=== PATIENT | male | born 1940 | race Caucasian/White ===

== ENCOUNTER 2020-02-24 07:57 | Inpatient (IN) ==
[2020-02-24] MEDS ORDERED: ONDANSETRON INJ 2 MG/ML 2 ML VIAL IV STA (08:17)
[2020-02-24] MEDS ORDERED: fentaNYL citrate 100 MCG/2 ML VIAL IV PRN ×2 (08:17→14:43)
[2020-02-24] MEDS ORDERED: SODIUM CHLORIDE 0.9% 500 ML IV SCH (08:30)
[2020-02-24 08:31] LABS: Basophils # (auto) 0.02 K/uL (0-0.2); Basophils % (auto) 0.2 %; Eosinophils # (auto) 0.31 K/uL (0-0.5); Eosinophils % (auto) 2.5 %; Hematocrit (blood only) 49.5 % (42-52); Hemoglobin 17.4 g/dL (14.0-18.0); Immature Granulocytes # (auto) 0.04 K/uL (0.00-0.02); Immature Granulocytes % (auto) 0.3 %; Lymphocytes # (auto) 1.38 K/uL (1.2-3.4); Lymphocytes % (auto) 11.2 %; Mean Corpuscular Hemoglobin 31.4 pg (25-34); Mean Corpuscular Hgb Conc 35.2 g/dL (32-36); Mean Corpuscular Volume 89.2 fL (80-100); Mean Platelet Volume 9.8 fL (7.4-10.4); Monocytes # (auto) 0.91 K/uL (0.11-0.59); Monocytes % (auto) 7.4 %; Neutrophils # (auto) 9.69 K/uL (1.4-6.5); Neutrophils % (auto) 78.4 %; Platelet Count 249 K/uL (130-400); RDW Coefficient of Variation 14.2 % (11.5-14.5); RDW Standard Deviation 46.1 fL (36.4-46.3); Red Blood Count 5.55 M/uL (4.7-6.1); White Blood Count 12.35 K/uL (4.8-10.8)
--- NOTE | 2020-02-24 08:34 | Emergency Department Note ---
Impression & Plan Femur fracture, right, Fall, Compression fracture of lumbar vertebra, Compression fracture of thoracic vertebra ED Provider Note NAME: JEFF TAYLOR GEOVANY AGE: 79 SEX: M : 1940 ARRIVES VIA: Ambulance INFORMANT: Patient, the guards, the prehospital personnel ED PROVIDER(S): Nasir De Los Santos DO CHIEF COMPLAINT: Fall HPI: The patient is a 79-year-old male who presented to the emergency department from [facility]. The patient had an unwitnessed fall in the shower. He was found on the ground complaining of mostly right-sided pain. Apparently the patient is not spoken to any medical provider. It is unclear if the patient is unwilling to speak to providers or if he is deaf. The patient follows commands. According to the prehospital personnel the patient had right-sided pain mostly in the right thigh as well as the right elbow. There was no reported loss of consciousness however the patient was not witnessed with the fall. The patient does appear to communicate pain when he is palpated in these areas especially on the right upper and lower extremities. He does not have any reported abdominal pain chest pain neck pain nausea or vomiting. The patient was placed in a rigid cervical collar prior to arrival. The patient was not treated with pain medication prior to arrival. The patient has not had similar symptoms in the past to the best of my knowledge. ROS: See above HPI for pertinent positives & negatives. A total of 10 systems reviewed and were otherwise negative. Additional history was obtained from the guards as well as the prehospital personnel. PAST MEDICAL HISTORY: See Below PAST SURGICAL HISTORY: See Below FAMILY HISTORY: See Below SOCIAL HISTORY: See Below HOME MEDICATIONS: See Below ALLERGIES: See Below VITALS: See Below PHYSICAL EXAMINATION: GENERAL: The patient is awake and alert. He appears to be uncomfortable. He is currently immobilized with a rigid cervical collar. EYES: The conjunctivae are clear. The pupils are round and reactive. EARS, NOSE, MOUTH AND THROAT: The nose is without any evidence of any deformity. Mucous membranes are moist. Tongue is midline. NECK: There is no palpable posterior tenderness noted. The rigid cervical michael ar will remain in place for now. RESPIRATORY: Diminished breath sounds are noted throughout. There is no tachypnea or retractions noted. CARDIOVASCULAR: Regular rate and rhythm noted there no murmurs rubs or gallops normal S1 normal S2. GASTROINTESTINAL: The abdomen is nondistended. There is diffuse tenderness to palpation but no guarding or rigidity. Ostomy site is noted. BACK: No midline tenderness or or step-off noted range of motion in flexion extension as well as rotation no signs of muscle spasm noted MUSCULOSKELETAL/EXTREMITIES: The patient has pain with range of motion testing of the right thigh. He also has ecchymosis over the right vizcaino. There is a skin tear and tenderness over the right elbow. Range of motion appears intact in both upper extremities. SKIN: There is no obvious evidence of any rash. Trace pedal edema was noted. Pulses are symmetric in both feet. Skin was warm and dry. NEUROLOGIC: Patient is awake alert and follows commands. He is moving all extremities. MEDICAL DECISION MAKING: The patient is a 79-year-old male who presented to the emergency department after a fall in the shower. This was unwitnessed but the patient was found lying on his right side with significant pain to his right thigh. The patient was found to have a right femur fracture. The patient was evaluated with multiple laboratory and radiographic studies. He was also found have multiple compression fractures. I discussed the patient's laboratory and radiographic studies with him. Given his findings I discussed his case with the on-call [facility] hospitalist group as well as the on-call orthopedic surgeon. They have agreed to evaluate the patient for further inpatient management. Triage Nursing notes reviewed. Prior medical records reviewed Vital Signs: reviewed and remarkable for no significant abnormalities Differential diagnosis: Fracture, dislocation, contusion, intra-abdominal, pneumothorax, intrathoracic, intracranial, neurologic, compartment syndrome, rhabdomyolysis, as well as other pathologies. ER treatment provided: See below Diagnostics interpreted by me: ECG: EKG was obtained in the emergency department. My interpretation is normal sinus rhythm at 74 bpm. There is no ectopy. There is no acute ST segments. No previous tracing was available. Cardiac Monitoring: An order was placed for continuous cardiac monitoring. The monitor shows a rate of 83 with sinus rhythm. Laboratory studies: As stated above and show below. Imaging studies: XR shoulder RT min 2V routine CLINICAL HISTORY: fall trauma. Pain. COMPARISON: None. DISCUSSION: Moderate generalized degenerative change. No well-defined fracture or dislocation. Cortical margins are intact. Bony density is consistent with osteopenia. There is no evidence for soft tissue swelling. IMPRESSION: No acute process. Moderate degenerative change. Osteopenia. ACT 112: Negative or not required by law. The above report was generated using voice recognition software. It may contain grammatical, syntax or spelling errors. Electronically signed by: Rodger Meyers M.D. 02/24/2020 10:12 AM Dictated: 02/24/20 1012 Transcribed: 02/24/20 1012 R tibia fibula RT 2V CLINICAL HISTORY: fall trauma COMPARISON: None. DISCUSSION: The bones and joint spaces appear intact. There is no evidence of fracture, dislocation or bony disease. There is no evidence for soft tissue swelling. IMPRESSION: Negative study. ACT 112: Negative or not required by law. The above report was generated using voice recognition software. It may contain grammatical, syntax or spelling errors. Electronically signed by: Rodger Meyers M.D. 02/24/2020 10:11 AM Dictated: 02/24/20 1009 Transcribed: 02/24/[address] OF THE HEAD WITHOUT CONTRAST CLINICAL HISTORY: fall COMPARISON STUDY: Head CT July 22, 2018. TECHNIQUE: Helical axial images of the head were obtained without IV contrast. Automated exposure control was utilized for the study. A dose lowering technique was utilized adhering to the principles of ALARA. FINDINGS: No acute intracranial hemorrhage, midline shift or mass effect is present. The ventricular system is unremarkable. The basilar cisterns are patent. No extra-axial collections are present. There are no findings to suggest acute dural sinus thrombosis or acute territorial infarct. No significant calvarial abnormalities are present. Visualized portions of the sinuses and mastoid air cells are clear. White matter hypodensities are unchanged and suggest small vessel disease. Extensive intracranial vascular calcification is again noted. IMPRESSION: 1. No acute intracranial findings. No change in appearance of the brain. 2. No calvarial fracture. ACT 112: Negative or not required by law. Electronically signed by: Sharda Roger M.D. 02/24/2020 9:00 AM Dictated: 02/24/20 0856 Transcribed: 02/24/20 0856 XR femur RT 2V routine CLINICAL HISTORY: fall trauma. Pain. COMPARISON: None. DISCUSSION: Oblique fracture proximal right femoral shaft. Mild bony angulation. Severe degenerative change right hip. Mild bladder wall trabeculation. No evidence for dislocation. There is no evidence for soft tissue swelling. IMPRESSION: Oblique fracture proximal right femoral shaft. Mild fracture angulation. Severe degenerative change right hip. ACT 112: Negative or not required by law. The above report was generated using voice recognition software. It may contain grammatical, syntax or spelling errors. Electronically signed by: Rodger Meyers M.D. 02/24/2020 10:24 AM Dictated: 02/24/20 1023 Transcribed: 02/24/20 1023 XR elbow RT min 3V routine CLINICAL HISTORY: fall trauma COMPARISON: None. DISCUSSION: The bones and joint spaces appear intact. There is no evidence of fracture, dislocation or bony disease. There is no evidence for soft tissue swelling. IMPRESSION: Negative study. Minimal degenerative change ACT 112: Negative or not required by law. The above report was generated using voice recognition software. It may contain grammatical, syntax or spelling errors. Electronically signed by: Rodger Meyers M.D. 02/24/2020 10:12 AM Dictated: 02/24/20 1011 Transcribed: 02/24/[address] chest w con CT DOSE: HISTORY: Trauma fall TECHNIQUE: Multiaxial CT images of the chest were performed following the intravenous administration of contrast. A dose lowering technique was utilized adhering to the principles of ALARA. COMPARISON: None. FINDINGS: The lungs are clear. The mediastinal vascular structures are within normal limits. No mediastinal or hilar lymphadenopathy. No pleural effusion or p neumothorax. Limited views of the upper abdomen demonstrate a normal liver and spleen. Gallstones are present. Evaluation of the bony structures demonstrates a 50% compression deformity of what appears to be T12. Age is uncertain. IMPRESSION: No significant abnormality identified within the chest. Gallstones. 50% compression deformity of T12 of uncertain age. ACT 112: Negative or not required by law. The above report was generated using voice recognition software. It may contain grammatical, syntax or spelling errors. Electronically signed by: Rodger Meyers M.D. 02/24/2020 9:08 AM Dictated: 02/24/20 0905 Transcribed: 02/24/[address] cervical spine wo con CT DOSE: HISTORY: Trauma fall TECHNIQUE: Multiaxial CT images of the cervical spine were performed and reformatted in the sagittal and coronal plane without the use of contrast. A dose lowering technique was utilized adhering to the principles of ALARA. COMPARISON: 07/22/2018 FINDINGS: No fractures. No subluxation. Prevertebral soft tissues and the C1-C2 interval are intact. No pneumothorax. Moderate generalized degenerative change IMPRESSION: No fractures within the cervical spine. Moderate generalized degenerative change. ACT 112: Negative or not required by law. The above report was generated using voice recognition software. It may contain grammatical, syntax or spelling errors. Electronically signed by: Rodger Meyers M.D. 02/24/2020 9:05 AM Dictated: 02/24/20902 Transcribed: 02/24/20902 CT OF THE ABDOMEN AND PELVIS WITH CONTRAST CLINICAL HISTORY: fall COMPARISON STUDY: None. TECHNIQUE: Following IV administration of 93 mL of Optiray-320, axial images of the abdomen and pelvis were obtained from the lung bases to the proximal femurs. Images were reviewed in the axial, sagittal, and coronal planes. IV contrast was administered without complication. Automated exposure control was utilized for the study. A dose lowering technique was utilized adhering to the principles of ALARA. CT DOSE: 1790.65 mGy.cm FINDINGS: Please note that the chest will be reported separately. No hemoperitoneum or pneumoperitoneum is noted. There is no evidence for traumatic injury to the liver, spleen, adrenal glands, kidneys or pancreas. There is no biliary or pancreatic ductal dilatation dictation. There are gallstones within the gallbladder. There is no evidence for acute cholecystitis. The caliber and wall thickness of small bowel is noted. There is a right lower quadrant ileostomy. Patient is status post colectomy. There is no lymphadenopathy or ascites. Multiple large bladder calculi measure up to 3.5 cm. There is moderate bladder wall thickening. No hydronephrosis is present. Note is made of a severe T12 compression fracture. This is age indeterminate but probably subacute. There are mild compression fractures of T11 and L4 which are also age-indeterminate but probably old. 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 There is an acute proximal right femoral fracture which extends from the subtrochanteric portion of the right femur to the femoral neck. Fracture is mildly displaced within the subtrochanteric and intertrochanteric portions and nondisplaced at the level of the femoral neck. There is mild adjacent edema/hemorrhage. No acute pelvic fracture is noted. IMPRESSION: 1. Acute proximal right femoral fracture. Fracture mildly displaced within the subtrochanteric and intertrochanteric portions and nondisplaced at the level of the femoral neck. 2. No evidence of traumatic injury to the solid abdominal viscera. 3. Several lower thoracic and lumbar spine compression fractures, including a severe T12 compression fracture which is probably subacute. 4. Multiple large bladder calculi. Bladder wall thickening. 5. Cholelithiasis. ACT 112: Negative or not required by law. Electronically signed by: Sharad Roger M.D. 02/24/2020 9:16 AM Dictated: 02/24/20900 Transcribed: 02/24/20912 Consultation(s): 0950: I discussed this case with Bushra with the [facility] hospitalist group. They have agreed to evaluate the patient in the emergency department for further management and disposition. 1000: I discussed this case with Iveth who is the physician pet care assistant working with Dr. Medrano. They will evaluate the patient for surgical management. Past Med/Surg History Medical History (Updated 02/24/20 @ 10:42 by Nasir De Los Santos DO) Dermatomycosis Lumbar radiculopathy Major neurocognitive disorder Paroxysmal atrial fibrillation Presbycusis Thrombophlebitis Surgical History (Updated 02/24/20 @ 08:39 by Nasir De Los Santos DO) History of colostomy Social History Preferred Language: Malagasy Communication Ability: nonverbal Patient Observer Required: No Beliefs That Will Affect Care: None Current Living Situation: Other Current Living Situation Comment: [facility] Other Information That Helps Us Care for You: No Feels Safe at Home: Yes Smoking Status: Current every day smoker Do You Dip or Chew Tobacco: No ; Second Hand Exposure: No ; Tobacco Cessation Education Requested by Patient: No Hx Alcohol Use: No Hx Substance Use: No Allergies Allergies Allergy/AdvReac Type Severity Reaction Status Date / Time No Known Allergies Allergy Unverified 02/24/20 08:30 Home Meds Home Medications Medication Instructions Recorded Confirmed acetaminophen 650 mg PO QID PRN 02/24/20 02/24/20 celecoxib 100 mg PO DAILY 02/24/20 02/24/20 zinc oxide [Desitin] 1 applic TOPICAL BID 02/24/20 02/24/20 Results & Data (ED) Vital Signs Vital Signs - 24 hr 02/24/20 08:03 02/24/20 09:16 Temperature 36.5 C Temperature Source Oral Pulse Rate 83 Pulse Rate [Apical] 74 Pulse Rhythm Regular Pulse Rhythm [Apical] Regular Pulse Strength Normal Pulse Strength [Apical] Normal Respiratory Rate 18 18 Respiratory Effort / Characteristics Non-Labored Spontaneous Non-Labored Spontaneous Respiratory Depth Normal Normal Respiratory Pattern Regular Regular Blood Pressure 146/72 H Blood Pressure [Right Arm] 123/67 Blood Pressure Mean 96 Blood Pressure Mean [Right Arm] 85 Blood Pressure Position Lying Blood Pressure Position [Right Arm] Lying Pulse Oximetry 99 97 Oxygen Delivery Method Room Air Room Air Sepsis Recent Fever Within 48 Hours No Sepsis New/Unexplained Change in Mental Status No Sepsis Action Taken by Nursing No Action Required Laboratory Data Attestation: I reviewed the patient's lab results. Result diagrams: 02/24/20 08:13 02/24/20 08:13 Lab Results 02/24/20 02/24/20 02/24/20 Range/Units 08:13 08:13 08:13 WBC 12.35 H (4.8-10.8) K/uL RBC 5.55 (4.7-6.1) M/uL Hgb 17.4 (14.0-18.0) g/dL POC Hgb (14.0-18.0) g/dl Hct 49.5 (42-52) % POC Hct (42-52) % MCV 89.2 (80-100) fL MCH 31.4 (25-34) pg MCHC 35.2 (32-36) g/dL RDW Std Deviation 46.1 (36.4-46.3) fL RDW Coeff of Andrew 14.2 (11.5-14.5) % Plt Count 249 (130-400) K/uL MPV 9.8 (7.4-10.4) fL Immature Gran % (Auto) 0.3 % Neut % (Auto) 78.4 % Lymph % (Auto) 11.2 % Ziebach % (Auto) 7.4 % Eos % (Auto) 2.5 % Baso % (Auto) 0.2 % Immature Gran # (Auto) 0.04 H (0.00-0.02) K/uL Neut # (Auto) 9.69 H (1.4-6.5) K/uL Lymph # (Auto) 1.38 (1.2-3.4) K/uL Z[place]bach # (Auto) 0.91 H (0.11-0.59) K/uL Eos # (Auto) 0.31 (0-0.5) K/uL Baso # (Auto) 0.02 (0-0.2) K/uL PT 12.0 (9.0-12.0) Seconds INR 1.1 (0.9-1.1) APTT 27.4 (21.0-31.0) Seconds PTT Ratio 1.0 POC Sodium (135-144) mmol/L Sodium 140 (136-145) mmol/L POC Potassium (3.3-5.0) mmol/L Potassium 3.9 (3.5-5.1) mmol/L POC Chloride (101-112) mmol/L Chloride 108 H (98-107) mmol/L Carbon Dioxide 25 (21-32) mmol/L POC Total CO2 (24-31) mEq/l Anion Gap 7.0 (3-11) POC Anion Gap (16-25) mmol/L POC BUN (7-18) mg/dl BUN 27 H (7-18) mg/dl Creatinine 1.35 (0.6-1.4) mg/dl POC Creatinine (0.6-1.3) mg/dl Est Cr Clr Drug Dosing Not Reportable Est GFR ( Amer) 57.5 Est GFR (Non-Af Amer) 49.6 BUN/Creatinine Ratio 20.1 H (10-20) Glucose 179 H (70-99) mg/dl POC Glucose (other) (70-99) mg/dl Calcium 8.9 (8.5-10.1) mg/dl POC Ioniz Calcium Perez (1.12-1.32) mmol/l Total Bilirubin 0.8 (0.2-1) mg/dl AST 32 (15-37) U/L ALT 43 (12-78) U/L Alkaline Phosphatase 120 H (45-117) U/L Troponin I < 0.015 (0-0.045) ng/ml Total Protein 7.9 (6.4-8.2) gm/dl Albumin 3.4 (3.4-5.0) gm/dl Globulin 4.5 H (2.5-4.0) gm/dl Albumin/Globulin Ratio 0.8 L (0.9-2) Lipase 93 (73-393) U/L 04/23/20 Range/Units 08:34 WBC (4.8-10.8) K/uL RBC (4.7-6.1) M/uL Hgb (14.0-18.0) g/dL POC Hgb 17.3 (14.0-18.0) g/dl Hct (42-52) % POC Hct 51 (42-52) % MCV (80-100) fL MCH (25-34) pg MCHC (32-36) g/dL RDW Std Deviation (36.4-46.3) fL RDW Coeff of Andrew (11.5-14.5) % Plt Count (130-400) K/uL MPV (7.4-10.4) fL Immature Gran % (Auto) % Neut % (Auto) % Lymph % (Auto) % Ziebach % (Auto) % Eos % (Auto) % Baso % (Auto) % Immature Gran # (Auto) (0.00-0.02) K/uL Neut # (Auto) (1.4-6.5) K/uL Lymph # (Auto) (1.2-3.4) K/uL [place]bach # (Auto) (0.11-0.59) K/uL Eos # (Auto) (0-0.5) K/uL Baso # (Auto) (0-0.2) K/uL PT (9.0-12.0) Seconds INR (0.9-1.1) APTT (21.0-31.0) Seconds PTT Ratio POC Sodium 142 (135-144) mmol/L Sodium (136-145) mmol/L POC Potassium 3.9 (3.3-5.0) mmol/L Potassium (3.5-5.1) mmol/L POC Chloride 105 (101-112) mmol/L Chloride (98-107) mmol/L Carbon Dioxide (21-32) mmol/L POC Total CO2 25 (24-31) mEq/l Anion Gap (3-11) POC Anion Gap 17.0 (16-25) mmol/L POC BUN 27 H (7-18) mg/dl BUN (7-18) mg/dl Creatinine (0.6-1.4) mg/dl POC Creatinine 1.2 (0.6-1.3) mg/dl Est Cr Clr Drug Dosing Est GFR ( Amer) Est GFR (Non-Af Amer) BUN/Creatinine Ratio (10-20) Glucose (70-99) mg/dl POC Glucose (other) 175 H (70-99) mg/dl Calcium (8.5-10.1) mg/dl POC Ioniz Calcium Perez 1.20 (1.12-1.32) mmol/l Total Bilirubin (0.2-1) mg/dl AST (15-37) U/L ALT (12-78) U/L Alkaline Phosphatase (45-117) U/L Troponin I (0-0.045) ng/ml Total Protein (6.4-8.2) gm/dl Albumin (3.4-5.0) gm/dl Globulin (2.5-4.0) gm/dl Albumin/Globulin Ratio (0.9-2) Lipase (73-393) U/L Administered Medications Fentanyl Citrate (Fentanyl Citrate) 50 mcg IV Q15M PRN PRN Reason: Pain Stop: 03/09/20 08:16 Last Admin: 02/24/20 08:39 Dose: 50 mcg Documented by: [id number] Ioversol (Optiray 320 100ml) 93 ml IV ONCE PRN PRN Reason: Interaction Checking Stop: 02/28/20 08:47 Last Admin: 02/24/20 08:49 Dose: 93 ml Documented by: [id number] Discontinued Medications Sodium Chloride (Nss) 500 mls @ 999 mls/hr IV .Q31M [id number] Stop: 02/24/20 09:00 Last Infusion: 02/24/20 09:12 Dose: 0 mls/hr Documented by: [id number] Admin: 02/24/20 08:40 Dose: 999 mls/hr Documented by: [id number] Ondansetron HCl (Zofran) 4 mg IV NOW STA Stop: 02/24/20 08:18 Last Admin: 02/24/20 08:40 Dose: 4 mg Documented by: [id number] Blood Pressure Blood Pressure Findings: Normal blood pressure Discharge Plan Visit Data Chief Complaint: Fall ED Provider: Nasir De Los Santos Discharge Problem: Femur fracture, right, Fall, Compression fracture of lumbar vertebra, Compression fracture of thoracic vertebra Forms Stand Alone Forms: [employer] Prescriptions Prescriptions: No Action acetaminophen 325 mg Tablet 650 mg PO QID PRN (Reason: Pain) RF: 0 celecoxib 100 mg Capsule 100 mg PO DAILY RF: 0 Desitin 13 % Cream 1 applic TOPICAL BID RF: 0 Referrals Referrals: DARSHAN,Braden [Primary Care Provider] - Discharge Problem: Femur fracture, right Qualifiers: Encounter type: initial encounter Femur location: unspecified portion of femur Fracture type: closed Fracture morphology: unspecified fracture morphology Qualified Code(s): S72.91XA - Unspecified fracture of right femur, initial enco unter for closed fracture Fall Qualifiers: Encounter type: initial encounter Qualified Code(s): W19.XXXA - Unspecified fall, initial encounter Compression fracture of lumbar vertebra Qualifiers: Encounter type: initial encounter Lumbar vertebra fracture level: unspecified lumbar vertebra Qualified Code(s): S32.000A - Wedge compression fracture of unspecified lumbar vertebra, initial encounter for closed fracture Compression fracture of thoracic vertebra Qualifiers: Encounter type: initial encounter Thoracic vertebra fracture level: T12 Qualified Code(s): S22.080A - Wedge compression fracture of T11-T12 vertebra, initial encounter for closed fracture
[2020-02-24 08:41] LABS: INR 1.1 (0.9-1.1); Partial Thromboplastin Time 27.4 Seconds (21.0-31.0)
[2020-02-24 08:47] LABS: iSTAT Creatinine 1.2 mg/dl (0.6-1.3); iSTAT Hemoglobin 17.3 g/dl (14.0-18.0); iSTAT Ionized Calcium 1.2 mmol/l (1.12-1.32); iSTAT Potassium 3.9 mmol/L (3.3-5.0)
[2020-02-24] MEDS ORDERED: IOVERSOL 100ml IV PRN (08:48)
[2020-02-24 08:49] LABS: Alanine Aminotransferase 43 U/L (12-78); Albumin Level 3.4 gm/dl (3.4-5.0); Aspartate Aminotransferase 32 U/L (15-37); BUN Creatinine Ratio 20.1 (10-20); Blood Urea Nitrogen 27 mg/dl (7-18); Calcium 8.9 mg/dl (8.5-10.1); Carbon Dioxide 25 mmol/L (21-32); Chloride 108 mmol/L (98-107); Est GFR (African American) 57.5; Est GFR (Non-African American) 49.6; Glucose 179 mg/dl (70-99); Lipase 93 U/L (73-393); Potassium 3.9 mmol/L (3.5-5.1); Sodium 140 mmol/L (136-145)
[2020-02-24 08:54] LABS: Albumin Globulin Ratio 0.8 (0.9-2); Alkaline Phosphatase 120 U/L (45-117); Bilirubin,Total 0.8 mg/dl (0.2-1); Globulin 4.5 gm/dl (2.5-4.0); Total Protein 7.9 gm/dl (6.4-8.2); Troponin I < 0.015 ng/ml (0-0.045)
--- NOTE | 2020-02-24 09:02 | CT Scan Report ---
CT OF THE HEAD WITHOUT CONTRAST CLINICAL HISTORY: fall COMPARISON STUDY: Head CT July 22, 2018. TECHNIQUE: Helical axial images of the head were obtained without IV contrast. Automated exposure con trol was utilized for the study. A dose lowering technique was utilized adhering to the principles o f ALARA. FINDINGS: No acute intracranial hemorrhage, midline shift or mass effect is present. The ventricular system is unremarkable. The basilar cisterns are patent. No extra-axial collections are present. Ther e are no findings to suggest acute dural sinus thrombosis or acute territorial infarct. No significan t calvarial abnormalities are present. Visualized portions of the sinuses and mastoid air cells are c lear. White matter hypodensities are unchanged and suggest small vessel disease. Extensive intracrani al vascular calcification is again noted. IMPRESSION: 1. No acute intracranial findings. No change in appearance of the brain. 2. No calvarial fracture. ACT 112: Negative or not required by law. Electronically signed by: Sharad Roger M.D. 02/24/2020 9:00 AM
--- NOTE | 2020-02-24 09:06 | CT Scan Report ---
CT cervical spine wo con CT DOSE: HISTORY: Trauma fall TECHNIQUE: Multiaxial CT images of the cervical spine were performed and reformatted in the sagittal and coronal plane without the use of contrast. A dose lowering technique was utilized adhering to th e principles of ALARA. COMPARISON: 07/22/2018 FINDINGS: No fractures. No subluxation. Prevertebral soft tissues and the C1-C2 interval are intact. No pneumothorax. Moderate generalized degenerative change IMPRESSION: No fractures within the cervical spine. Moderate generalized degenerative change. ACT 112: Negative or not required by law. The above report was generated using voice recognition software. It may contain grammatical, syntax or spelling errors. Electronically signed by: Rodger Meyers M.D. 02/24/2020 9:05 AM
--- NOTE | 2020-02-24 09:10 | CT Scan Report ---
CT chest w con CT DOSE: HISTORY: Trauma fall TECHNIQUE: Multiaxial CT images of the chest were performed following the intravenous administration of contrast. A dose lowering technique was utilized adhering to the principles of ALARA. COMPARISON: None. FINDINGS: The lungs are clear. The mediastinal vascular structures are within normal limits. No media stinal or hilar lymphadenopathy. No pleural effusion or pneumothorax. Limited views of the upper abdo men demonstrate a normal liver and spleen. Gallstones are present. Evaluation of the bony structures demonstrates a 50% compression deformity of what appears to be T12. Age is uncertain. IMPRESSION: No significant abnormality identified within the chest. Gallstones. 50% compression deformity of T12 of uncertain age. ACT 112: Negative or not required by law. The above report was generated using voice recognition software. It may contain grammatical, syntax or spelling errors. Electronically signed by: Rodger Meyers M.D. 02/24/2020 9:08 AM
--- NOTE | 2020-02-24 09:17 | CT Scan Report ---
CT OF THE ABDOMEN AND PELVIS WITH CONTRAST CLINICAL HISTORY: fall COMPARISON STUDY: None. TECHNIQUE: Following IV administration of 93 mL of Optiray-320, axial images of the abdomen and pelvi s were obtained from the lung bases to the proximal femurs. Images were reviewed in the axial, sagitt al, and coronal planes. IV contrast was administered without complication. Automated exposure contro l was utilized for the study. A dose lowering technique was utilized adhering to the principles of A CARLA. CT DOSE: 1790.65 mGy.cm FINDINGS: Please note that the chest will be reported separately. No hemoperitoneum or pneumoperitone um is noted. There is no evidence for traumatic injury to the liver, spleen, adrenal glands, kidneys or pancreas. There is no biliary or pancreatic ductal dilatation dictation. There are gallstones with in the gallbladder. There is no evidence for acute cholecystitis. The caliber and wall thickness of s mall bowel is noted. There is a right lower quadrant ileostomy. Patient is status post colectomy. The re is no lymphadenopathy or ascites. Multiple large bladder calculi measure up to 3.5 cm. There is mo derate bladder wall thickening. No hydronephrosis is present. Note is made of a severe T12 compressio n fracture. This is age indeterminate but probably subacute. There are mild compression fractures of T11 and L4 which are also age-indeterminate but probably old. 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 There is an acute proximal right femoral fracture which extends from the subtrochante tori portion of the right femur to the femoral neck. Fracture is mildly displaced within the subtrocha nteric and intertrochanteric portions and nondisplaced at the level of the femoral neck. There is mil d adjacent edema/hemorrhage. No acute pelvic fracture is noted. IMPRESSION: 1. Acute proximal right femoral fracture. Fracture mildly displaced within the subtrochanteric and in tertrochanteric portions and nondisplaced at the level of the femoral neck. 2. No evidence of traumatic injury to the solid abdominal viscera. 3. Several lower thoracic and lumbar spine compression fractures, including a severe T12 compression fracture which is probably subacute. 4. Multiple large bladder calculi. Bladder wall thickening. 5. Cholelithiasis. ACT 112: Negative or not required by law. Electronically signed by: Sharad Roger M.D. 02/24/2020 9:16 AM
--- NOTE | 2020-02-24 10:12 | XRay Report ---
XR tibia fibula RT 2V CLINICAL HISTORY: fall trauma COMPARISON: None. DISCUSSION: The bones and joint spaces appear intact. There is no evidence of fracture, dislocation o r bony disease. There is no evidence for soft tissue swelling. IMPRESSION: Negative study. ACT 112: Negative or not required by law. The above report was generated using voice recognition software. It may contain grammatical, syntax or spelling errors. Electronically signed by: Rodger Meyers M.D. 02/24/2020 10:11 AM
--- NOTE | 2020-02-24 10:13 | XRay Report ---
XR elbow RT min 3V routine CLINICAL HISTORY: fall trauma COMPARISON: None. DISCUSSION: The bones and joint spaces appear intact. There is no evidence of fracture, dislocation o r bony disease. There is no evidence for soft tissue swelling. IMPRESSION: Negative study. Minimal degenerative change ACT 112: Negative or not required by law. The above report was generated using voice recognition software. It may contain grammatical, syntax or spelling errors. Electronically signed by: Rodger Meyers M.D. 02/24/2020 10:12 AM
--- NOTE | 2020-02-24 10:14 | XRay Report ---
XR shoulder RT min 2V routine CLINICAL HISTORY: fall trauma. Pain. COMPARISON: None. DISCUSSION: Moderate generalized degenerative change. No well-defined fracture or dislocation. Cortic al margins are intact. Bony density is consistent with osteopenia. There is no evidence for soft tiss ue swelling. IMPRESSION: No acute process. Moderate degenerative change. Osteopenia. ACT 112: Negative or not required by law. The above report was generated using voice recognition software. It may contain grammatical, syntax or spelling errors. Electronically signed by: Rodger Meyers M.D. 02/24/2020 10:12 AM
[2020-02-24] MEDS ORDERED: PNEUMOCOCCAL POLYSACCHARIDES 25 MCG/0.5 ML VIAL/SYR IM ONE (10:22)
[2020-02-24] MEDS ORDERED: PNEUMOCOCCAL ADMINISTRATION CHARGE ONE (10:22)
--- NOTE | 2020-02-24 10:26 | XRay Report ---
XR femur RT 2V routine CLINICAL HISTORY: fall trauma. Pain. COMPARISON: None. DISCUSSION: Oblique fracture proximal right femoral shaft. Mild bony angulation. Severe degenerative change right hip. Mild bladder wall trabeculation. No evidence for dislocation. There is no evidence for soft tissue swelling. IMPRESSION: Oblique fracture proximal right femoral shaft. Mild fracture angulation. Severe degenerat jihan change right hip. ACT 112: Negative or not required by law. The above report was generated using voice recognition software. It may contain grammatical, syntax or spelling errors. Electronically signed by: Rodger Meyers M.D. 02/24/2020 10:24 AM
--- NOTE | 2020-02-24 10:39 | History & Physical Report ---
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 Xray reveals Oblique fracture proximal right femoral shaft. Mild fracture angulation. Seen and evaluated by Orthopedics in ED - likely plan is for OR today. Due to pt underlying cognitive status he is not able to sign consent, ortho to attempt to contact son Jorge Enrique [phone] admit to med/surg consult ortho - for surgery PT/OT post operatively encourage incentive spirometry IVF NS 75cc/hr x 2 L NPO pain control EKG, labs, Chest CT revealed and pt is medically stable for surgery, RCRI score 1 okay to proceed (3) Compression fracture of thoracic vertebra: defer to orthopedics will consult PT/OT when able pain control (4) Compression fracture of lumbar vertebra: defer to orthopedics will consult PT/OT when able pain control (5) Paroxysmal atrial fibrillation: per notes hx of PAF in 2015 not on any rate control oral anticoagulation Monitor (6) Major neurocognitive disorder: Patient with documented major neurocognitive disorder likely due to vascular disease without behavioral disturbance No formal diagnosis of dementia; however according to DARSHAN Feliciano at baseline he is only alert and oriented to self Occasionally does become nonverbal whenever he cannot hear or is in pain Monitor for delirium (7) Hyperglycemia: Blood glucose upon arrival was 179 No formal diagnosis of diabetes A1C was 5.5 likely in setting of stress response due to fx monitor accuchecks x 24hrs (8) DVT prophylaxis: SCD/TEDS for now pt likely to undergo surgery today would recommend chemical prophylaxis as soon as possible when okay per orthopedic Full code Disposition: admit to med/surg Follow up: [facility] Pt was seen and examined in collaboration with Dr. Mark, please see addendum Admission and Anticipated Discharge Date Admission Date: 02/24/2020 History of Present Illness Chief Complaint: Fall prior to arrival. 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 Fall was unwitnessed. It was felt he was not down long. Unable to obtain hx or ROS from pt given underlying cognitive disease. Per staff at [facility] at baseline he is mostly wheelchair bound but he is able to get up and ambulate a few steps for transfer. His mental status baseline is alert and orientation to self only. According to staff he does occasionally get nonverbal secondary to impacted cerumen and difficulty hearing as well as pain. When pain is improved he then becomes verbal again. According to staff he also frequently pulls off his ileostomy bag. Per staff he has not had anything to eat or drink yet this morning. In ED he remained hemodynamically stable. Lab work notable for WBC 12.35, H&H 17.4 and 49.5, platelet 249, sodium 140, K3.9, chloride 108, CO2 25, BUN 27, creatinine 1.35, glucose 179. Multiple imaging studies were performed which revealed acute proximal right femur fracture, mild displacement and angulation, several lower thoracic and lumbar spine compression fractures including a severe T12 compression fracture likely subacute. Cervical spine and chest CT was negative for acute abnormality. CT of head was negative for acute abnormality but did reveal severe cerebral calcifications unchanged from prior CT in 2018. In ED he did receive IV fentanyl for pain control and IVF. Allergies Allergy/AdvReac Type Severity Reaction Status Date / Time No Known Allergies Allergy Unverified 02/24/20 08:30 Home Medications Home Medications Medication Instructions Recorded Confirmed Type acetaminophen 650 mg PO QID PRN 02/24/20 02/24/20 History celecoxib 100 mg PO DAILY 02/24/20 02/24/20 History zinc oxide [Desitin] 1 applic TOPICAL BID 02/24/20 02/24/20 History Past Med/Surg History Medical History Dermatomycosis Lumbar radiculopathy Major neurocognitive disorder Paroxysmal atrial fibrillation Presbycusis Thrombophlebitis Surgical History History of colostomy Family History Other Unknown family medical history Social History Preferred Language: Bengali Communication Ability: nonverbal Applications Instructor Required: No Beliefs That Will Affect Care: None Current Living Situation: Other Current Living Situation Comment: DARSHAN Feliciano Other Information That Helps Us Care for You: No Feels Safe at Home: Yes Smoking Status: Smoker, status unknown Review of Systems Review of Systems: Unobtainable due to cognitive status Physical Exam Physical Exam: Constitutional: Elderly, male, lying in bed, awake and alert but not verbally responsive,vitals as above, NAD Head: Normocephalic, Atraumatic Eyes: Pupils equal and reactive to light, does not follow command, conjunctivae normal, anicteric sclerae ENMT: external ear and nose normal, oropharynx with dry mucous membranes Neck: trachea midline, no thyromegaly normal visual inspection Respiratory: normal respiratory effort, lungs clear to auscultation, no wheeze, rales, rhonchi. Normal insp/exp effort, no accessory muscle use Cardiovascular: RRR, no murmur, no edema Vessels: no JVD or carotid bruit Chest: normal inspection of chest Abdomen: Positive ventral scar noted, positive ileostomy right lower quadrant with no stool output, abdomen flat, nontender to palpation, normal active bowel sounds, no hepatosplenomegaly Musculoskeletal: no cyanosis or clubbing, shortened right lower extremity with foot inversion, ecchymosis and edema to right lateral thigh with deformity, patient does not follow commands to assess strength of other extremities Skin: no rashes, warm and dry moderate turgor Neurologic: PERRL, no face palsy, CN's II-XI intact grossly bilaterally Psychiatric: Alert and arousable, but does not follow commands or answer questions, nonverbal, flat affect Lymphatic: no cervical or axillary lymphadenopathy : deferred Results & Data Results & Data ([facility]) Vital Signs (Past 12 Hours) Vital Signs Temp Pulse Pulse Resp BP BP Pulse Ox 02/24/20 09:16 74 18 123/67 97 02/24/20 08:03 36.5 C 83 18 146/72 H 99 Laboratory Results Short CBC 02/24/20 02/24/20 Range/Units 08:13 08:13 WBC 12.35 H (4.8-10.8) K/uL Hgb 17.4 (14.0-18.0) g/dL Hct 49.5 (42-52) % Plt Count 249 (130-400) K/uL BUN 27 H (7-18) mg/dl Creatinine 1.35 (0.6-1.4) mg/dl [facility] 02/24/20 08:13 Sodium 140 Potassium 3.9 Chloride 108 H Carbon Dioxide 25 BUN 27 H Creatinine 1.35 Glucose 179 H Calcium 8.9 Cardiac Enzymes 02/24/20 Range/Units 08:13 Troponin I < 0.015 (0-0.045) ng/ml Liver Function 02/24/20 Range/Units 08:13 Total Bilirubin 0.8 (0.2-1) mg/dl AST 32 (15-37) U/L ALT 43 (12-78) U/L Alkaline Phosphatase 120 H (45-117) U/L Albumin 3.4 (3.4-5.0) gm/dl Diagnostic Findings abd/pelvis CT: IMPRESSION: 1. Acute proximal right femoral fracture. Fracture mildly displaced within the subtrochanteric and intertrochanteric portions and nondisplaced at the level of the femoral neck. 2. No evidence of traumatic injury to the solid abdominal viscera. 3. Several lower thoracic and lumbar spine compression fractures, including a severe T12 compression fracture which is probably subacute. 4. Multiple large bladder calculi. Bladder wall thickening. 5. Cholelithiasis. Cspine CT: IMPRESSION: No fractures within the cervical spine. Moderate generalized degenerative change. Chest CT: IMPRESSION: No significant abnormality identified within the chest. Gallstones. 50% compression deformity of T12 of uncertain age. Elbow Xray: IMPRESSION: Negative study. Minimal degenerative change Femur Xray: IMPRESSION: Oblique fracture proximal right femoral shaft. Mild fracture angulation. Severe degenerative change right hip. Head CT: IMPRESSION: 1. No acute intracranial findings. No change in appearance of the brain. 2. No calvarial fracture. Tib/Fib xray: IMPRESSION: Negative study. Shoulder Xray: Medications Administered Short CBC 02/24/20 Range/Units 08:13 WBC 12.35 H (4.8-10.8) K/uL Hgb 17.4 (14.0-18.0) g/dL Hct 49.5 (42-52) % Plt Count 249 (130-400) K/uL [facility] 02/24/20 08:13 Sodium 140 Potassium 3.9 Chloride 108 H Carbon Dioxide 25 BUN 27 H Creatinine 1.35 Glucose 179 H Calcium 8.9 Cardiac Enzymes 02/24/20 Range/Units 08:13 Troponin I < 0.015 (0-0.045) ng/ml Liver Function 02/24/20 Range/Units 08:13 Total Bilirubin 0.8 (0.2-1) mg/dl AST 32 (15-37) U/L ALT 43 (12-78) U/L Alkaline Phosphatase 120 H (45-117) U/L Albumin 3.4 (3.4-5.0) gm/dl ECG Rate (beats per minute): 74 Rhythm: normal sinus Additional Comments: QTC 466ms Code Status & VTE Plan Code Status Full Code VTE Prophylaxis Plan VTE Prophylaxis will be ordered: Yes Supervising Physician Co-Signing Physician Notes Patient is a 79-year-old male with past medical history of paroxysmal A. fib, thrombophlebitis, major neurocognitive disorder, Ileostomy and other problems presents from [facility] with history of unwitnessed fall. Patient is nonverbal and does not follow commands. Most of the history is obtained from [facility] staff, ER physician and old records. Imaging studies suggestive of acute proximal right femur fracture with mild displacement. Also showed several lower thoracic and lumbar spine compression fractures. Mild leukocytosis with 12 K and elevated blood glucose levels was noted on labs. On exam patient is normocephalic atraumatic, moderately built and nourished, no apparent distress, nonverbal, does not follow commands, lungs clear to auscultation, S1-S2, no murmur, abdomen soft, nontender,+Ileostomy,, no pedal edema, complete neuro exam could not be performed, Right LE decreased ROM, mild swelling, tender. Patient is admitted for management of right femur fracture, compression fracture of thoracic/lumbar vertebrae. Patient is hemodynamically stable. No known obvious contraindications for surgery noted. Orthopedics consulted for possible surgery today. Hemoconcentration noted. We will plan to give IV fluids, will control pain. Keep him n.p.o. for now given possible surgery. Will check HbA1c given hyperglycemia. I personally reviewed the record. Patient is interviewed and examined at bedside. Patient's care is coordinated with Bushra Pataky PA- C. Please refer to the documentation above for details of patient's presentation and for discussion of other issues. (1) Compression fracture of lumbar vertebra Encounter type: initial encounter Lumbar vertebra fracture level: unspecified lumbar vertebra Qualified Code(s): S32.000A - Wedge compression fracture of unspecified lumbar vertebra, initial encounter for closed fracture (2) Compression fracture of thoracic vertebra Encounter type: initial encounter Thoracic vertebra fracture level: T12 Qualified Code(s): S22.080A - Wedge compression fracture of T11-T12 vertebra, initial encounter for closed fracture (3) Femur fracture, right Encounter type: initial encounter Femur location: unspecified portion of femur Fracture morphology: unspecified fracture morphology Fracture type: closed Qualified Code(s): S72.91XA - Unspecified fracture of right femur, initial encounter for closed fracture (4) Fall Encounter type: initial encounter Qualified Code(s): W19.XXXA - Unspecified fall, initial encounter
[2020-02-24 11:09] LABS: Estimated Average Glucose 111 mg/dl; Hemoglobin A1C 5.5 % (4.5-5.6)
[2020-02-24] MEDS ORDERED: SODIUM CHLORIDE 0.9% 1000ML 1,000 ML IV SCH (11:33)
--- NOTE | 2020-02-24 11:49 | Orthopedic Consultation ---
Date of Consultation February 24, 2020 Assessment & Plan (1) Femur fracture, right: I spoke to Dr Medrano regarding the patients films, physical exam, and cognitive baseline. Dr Medrano feels the patient would benefit from surgical intervention. Medicine saw this patient and cleared for surgery. Patient has been NPO. I contacted [facility] Den[facility] and am awaiting information regarding who I may speak to for consent to proceed with surgery. The surgery includes ORIF Right proximal femur fracture to be performed by Dr Medrano. Potential risks, complications, and outcomes of surgery include but are not limited to bleeding, wound issues, nerve and vascular compromise, infection, nonunion/malunion, hardware failure, continued pain, limited mobility, anesthesia issues, DVT, PE, stroke, heart attack, . Dr Medrano plans to see patient. OR was contacted. I, Dr. Medrano, saw and examined the patient and discussed the management with my PA. I reviewed my PAs note and agree with the documented findings and the plan of care I developed. As we have made several attempts to contact the son who is the power of assistant district attorney and the nurse sporting goods sales manager of the [facility], as this patient is non-verbal, and due to the nature of the femoral fractures, we will proceed with surgery with implied consent. Present on Admission?: Yes History of Present Illness Reason for Consultation: Right proximal femur fracture Requesting Physician: Dr Medrano History of Present Illness The patient is a 79-year-old male who presented to the emergency department from [place]. The patient had an unwitnessed fall in the shower. He was found on the ground. According to the [employer] employees, the patient had right-sided pain mostly in the right thigh among other areas to a lesser degree. There was no reported loss of consciousness however the patient was not witnessed with the fall. Per [employer] employees patient is Alert x himself with baseline dementia, w/c bound mostly but occasionally transfers on his own, fairly nonverbal especially when he is in pain. The patient presented to the ED with rigid cervical collar. He upon arrival was given pain medication. Per ER staff he has been nonverbal, initially responding to pain with right hip motion. Dr Medrano was consulted for right proximal femur fracture. Per medicine patient also has a T12 compression fracture. Allergies Allergy/AdvReac Type Severity Reaction Status Date / Time No Known Allergies Allergy Unverified 02/24/20 08:30 Home Medications Home Medications Medication Instructions Recorded Confirmed Type acetaminophen 650 mg PO QID PRN 02/24/20 02/24/20 History celecoxib 100 mg PO DAILY 02/24/20 02/24/20 History zinc oxide [Desitin] 1 applic TOPICAL BID 02/24/20 02/24/20 History Patient History Medical History Dermatomycosis Lumbar radiculopathy Major neurocognitive disorder Paroxysmal atrial fibrillation Presbycusis Thrombophlebitis Surgical History History of colostomy Family History Other Unknown family medical history Social History Preferred Language: Bahamian Communication Ability: nonverbal Derrick Barge Operator Required: No Beliefs That Will Affect Care: None Current Living Situation: Other Current Living Situation Comment: [facility] Other Information That Helps Us Care for You: No Feels Safe at Home: Yes Smoking Status: Smoker, status unknown Review of Systems Review of Systems: Unable to obtain; patient nonverbal and not responding to commands/questions Physical Exam Physical Exam: Difficult to obtain with patient being nonverbal and not responding to pain stimulus/questions/or commands. Patient in bed ileostomy bag noted RLQ. B LE skin intact. Calves soft. Palpable DP and PT pulses. No pitting edema. Brisk capillary refill. Could not elicit pain response with right hip log rolling, passive hip motion, or passive knee motion. Results & Data ([facility]) Vital Signs (Past 12 Hours) Vital Signs Temp Pulse Pulse Resp BP BP Pulse Ox 02/24/20 10:30 74 20 116/71 98 02/24/20 09:16 74 18 123/67 97 02/24/20 08:03 36.5 C 83 18 146/72 H 99 Diagnostic Findings XR femur RT 2V routine CLINICAL HISTORY: fall trauma. Pain. COMPARISON: None. DISCUSSION: Oblique fracture proximal right femoral shaft. Mild bony angulation. Severe degenerative change right hip. Mild bladder wall trabeculation. No evidence for dislocation. There is no evidence for soft tissue swelling. IMPRESSION: Oblique fracture proximal right femoral shaft. Mild fracture angulation. Severe degenerative change right hip. CT Scan Report Patient: JEFF ARMENTA [id number] Admit Date: 02/24/20 Service Date: 02/24/20 Interpreting Phy: Sharad Roger MD Ordering Phy: Nasir De Los Santos, DO CT OF THE ABDOMEN AND PELVIS WITH CONTRAST CLINICAL HISTORY: fall COMPARISON STUDY: None. TECHNIQUE: Following IV administration of 93 mL of Optiray-320, axial images of the abdomen and pelvis were obtained from the lung bases to the proximal femurs. Images were reviewed in the axial, sagittal, and coronal planes. IV contrast was administered without complication. Automated exposure control was utilized for the study. A dose lowering technique was utilized adhering to the principles of ALARA. CT DOSE: 1790.65 mGy.cm FINDINGS: Please note that the chest will be reported separately. No hemoperitoneum or pneumoperitoneum is noted. There is no evidence for traumatic injury to the liver, spleen, adrenal glands, kidneys or pancreas. There is no biliary or pancreatic ductal dilatation dictation. There are gallstones within the gallbladder. There is no evidence for acute cholecystitis. The caliber and wall thickness of small bowel is noted. There is a right lower quadrant ileostomy. Patient is status post colectomy. There is no lymphadenopathy or ascites. Multiple large bladder calculi measure up to 3.5 cm. There is moderate bladder wall thickening. No hydronephrosis is present. Note is made of a severe T12 compression fracture. This is age indeterminate but probably subacute. There are mild compression fractures of T11 and L4 which are also age-indeterminate but probably old. 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 There is an acute proximal right femoral fracture which extends from the subtrochanteric portion of the right femur to the femoral neck. Fracture is mildly displaced within the subtrochanteric and intertrochanteric portions and nondisplaced at the level of the femoral neck. There is mild adjacent edema/hemorrhage. No acute pelvic fracture is noted. IMPRESSION: 1. Acute proximal right femoral fracture. Fracture mildly displaced within the subtrochanteric and intertrochanteric portions and nondisplaced at the level of the femoral neck. 2. No evidence of traumatic injury to the solid abdominal viscera. 3. Several lower thoracic and lumbar spine compression fractures, including a severe T12 compression fracture which is probably subacute. 4. Multiple large bladder calculi. Bladder wall thickening. 5. Cholelithiasis. CT cervical spine wo con CT DOSE: HISTORY: Trauma fall TECHNIQUE: Multiaxial CT images of the cervical spine were performed and reformatted in the sagittal and coronal plane without the use of contrast. A dose lowering technique was utilized adhering to the principles of ALARA. COMPARISON: 07/22/2018 FINDINGS: No fractures. No subluxation. Prevertebral soft tissues and the C1-C2 interval are intact. No pneumothorax. Moderate generalized degenerative change IMPRESSION: No fractures within the cervical spine. Moderate generalized degenerative change. (1) Femur fracture, right Encounter type: initial encounter Femur location: unspecified portion of femur Fracture morphology: unspecified fracture morphology Fracture type: closed Qualified Code(s): S72.91XA - Unspecified fracture of right femur, initial encounter for closed fracture
[2020-02-24] MEDS ORDERED: GLUCAGON FOR INJ 1 MG VIAL SQ PRN (11:56)
[2020-02-24] MEDS ORDERED: DEXTROSE 50% 50 ML SYRINGE IV PRN (11:56)
[2020-02-24] MEDS ORDERED: OXYCODONE HCL IR 5 MG TAB (IMMEDIATE RELEASE) PO PRN (11:56)
[2020-02-24] MEDS ORDERED: MoRPHine SULFATE 2 MG/ML CARP IV PRN (11:56)
[2020-02-24] MEDS ORDERED: GLUCOSE 10 TABS/TUBE PO PRN (11:56)
[2020-02-24] MEDS ORDERED: ONDANSETRON INJ 2 MG/ML 2 ML VIAL IV PRN ×2 (11:56→14:43)
[2020-02-24] MEDS ORDERED: CARBOHYDRATES FOR HYPOGLYCEMIA PO PRN (11:56)
[2020-02-24] MEDS ORDERED: bisacodyL 10 MG SUPP PR PRN (11:56)
[2020-02-24] MEDS ORDERED: GLUCOSE 40% GEL 15 GM TUBE PO PRN (11:56)
[2020-02-24] MEDS ORDERED: NALOXONE HCL 0.4 MG/1 ML VIAL/CARP IV PRN ×2 (11:56→18:26)
[2020-02-24] MEDS ORDERED: ACETAMINOPHEN 325 MG TAB PO PRN (11:56)
[2020-02-24] MEDS ORDERED: MAGNESIUM HYDROXIDE SUSP 30 ML UDC PO PRN (11:56)
[2020-02-24] MEDS ORDERED: CEFAZOLIN 1000MG 1,000 MG/7.5 ML SYR IV ONE (12:15)
[2020-02-24] MEDS ORDERED: BUPIVACAINE 0.5 % 5 MG/1 ML MPF 30ML VIAL ONE (12:30)
[2020-02-24] MEDS ORDERED: LIDOCAINE/EPINEPHRINE 1% 20 ML VIAL ONE (12:30)
--- NOTE | 2020-02-24 14:30 | Electrocardiogram Report ---
Test Reason : Blood Pressure : / mmHG Vent. Rate : 074 BPM Atrial Rate : 074 BPM P-R Int : 136 ms QRS Dur : 096 ms QT Int : 420 ms P-R-T Axes : -01 020 047 degrees QTc Int : 466 ms Poor data quality, interpretation may be adversely affected Normal sinus rhythm Normal ECG No previous ECGs available Confirmed by Obdulio Ramos ([id number]) on 02/24/2020 2:29:48 PM Referred By: [facility] Confirmed By:Marc Ramos
[2020-02-24] MEDS ORDERED: ePHEDrine sulfate 50 MG/ML AMP IV PRN (14:43)
[2020-02-24] MEDS ORDERED: ATROPINE SULFATE 0.1 MG/ML 10ML SYR IV PRN (14:43)
--- NOTE | 2020-02-24 14:43 | Anesthesiology Consultation ---
Date of Service February 24, 2020 Assessment & Plan (1) Encounter for pre-operative examination: Chart Review Chart Review: Acceptable Risk for Surgery and Patient NOT seen in Pre Admission Testing Consults Requested none ASA ASA3 Proposed Anesthesia Anesthesia Type: MAC Spinal Risk / Benefits Reviewed With: Informed Consent Obtained (Implied consent. Urgent procedure. POA unable to be contacted. Patient non verbal and does not follow commands. Case discussed with Dr Medrano and laborer beam house.) History Surgery Operation Date: 02/24/20 07:30 Proposed Procedures p Open Reduction Internal Fixation Right Trochanteric Femur Fracture - Jeraashish persaud MD Height/Weight Height: 5 ft 4 in Weight: 67.3 kg Allergies Allergy/AdvReac Type Severity Reaction Status Date / Time No Known Allergies Allergy Unverified 02/24/20 08:30 Medications Home Medications Medication Instructions Recorded Confirmed Last Taken acetaminophen 650 mg PO QID PRN 02/24/20 02/24/20 02/23/20 celecoxib 100 mg PO DAILY 02/24/20 02/24/20 02/23/20 zinc oxide [Desitin] 1 applic TOPICAL BID 02/24/20 02/24/20 02/23/20 Active Medications Generic Name Dose Route Start Last Admin Trade Name Freq PRN Reason Stop Dose Admin Sodium Chloride 1,000 mls @ 75 mls/hr 02/24/20 11:33 02/24/20 13:27 Nss 1000ml IV 02/25/20 14:12 75 mls/hr .[id number] Administration NPO Date Last Intake of Fluids: 02/24/20 Time Last Intake of Fluids: 00:00 Last Intake of Fluids Comment: per [facility] Date Last Intake of Solids: 02/24/20 Time Last Intake of Solids: 00:00 Last Intake of Solids Comment: per [facility] Past Medical History Medical History Dermatomycosis Lumbar radiculopathy Major neurocognitive disorder Paroxysmal atrial fibrillation Presbycusis Thrombophlebitis Exercise / Class Metabolic Activity III < 4 Walking/Shop/Light housework Past Family History Family History Other Unknown family medical history Past Surgical History Surgical History History of colostomy Past Anesthesia History No Hx of Anesthesia Complications and No Family Hx of Anesthesia Complications History of PONV No Hx of PONV and No Hx of Motion Sickness Social History Smoking Status: Smoker, status unknown Do You Dip or Chew Tobacco: No substance use type: does not use Physical Exam Vital Signs Last Vital Signs Temp 36.2 C L 02/24/20 14:12 Pulse 68 02/24/20 14:12 Resp 16 02/24/20 14:12 BP 120/74 02/24/20 14:12 Pulse Ox 97 02/24/20 14:12 ENMT Mouth: no dentition abnormality Thyromental Distance: > or= 3.5 Finger Breadths Mallampati Class: II Neck normal visual inspection Respiratory normal respiratory effort Auscultation: lungs clear to auscultation bilaterally Cardiovascular Rate/Rhythm: regular rate and regular rhythm Psychiatric Orientation: alert Testing Laboratory Results 02/24/20 08:13 02/24/20 08:13 PT 12.0 Seconds (9.0-12.0) 02/24/20 08:13 INR 1.1 (0.9-1.1) 02/24/20 08:13 APTT 27.4 Seconds (21.0-31.0) 02/24/20 08:13 Hemoglobin A1c 5.5 % (4.5-5.6) 02/24/20 08:13 Blood Type AB Positive 02/24/20 12:56 Antibody Screen NEGATIVE 02/24/20 12:56 02/24/20 02/24/20 12:58 08:34 POC Glucose 149 H POC Glucose (other) 175 H Electrocardiogram Date: 02/24/20 Findings: + NSR @
[2020-02-24] MEDS ORDERED: fentaNYL citrate 100 MCG/2 ML VIAL ONE (14:46)
[2020-02-24] MEDS ORDERED: PROPOFOL IV EMULSION 10 MG/ML 20 ML VIAL IV ONE ×2 (15:36→16:33)
[2020-02-24] MEDS ORDERED: ePHEDrine sulfate 50 MG/ML SYR ONE (15:36)
[2020-02-24] MEDS ORDERED: LIDOCAINE/EPINEPHRINE 1% 20 ML VIAL INJ ONE (18:14)
[2020-02-24] MEDS ORDERED: LIDOCAINE/EPINEPHRINE 2% 1:200,000 20 ML SDV INJ SCH (18:15)
[2020-02-24] MEDS ORDERED: BUPIVACAINE 0.5 % 5 MG/1 ML MPF 30ML VIAL INFIL SCH (18:15)
--- NOTE | 2020-02-24 18:16 | Post Operative Brief Note ---
Immediate Post Op Note v1 Date of Surgery February 24, 2020 Pre & Post Diagnosis Operation Date: 02/24/20 07:30 Pre-Op Diagnosis: Right subtrochanteric and femoral neck fracture Post-Op Diagnosis: Right subtrochanteric and femoral neck fracture I identified the patient and participated in the time-out.: Yes Procedure Operation Date: 02/24/20 07:30 Actual Procedures p Open Reduction Internal Fixation Right Trochanteric and Femoral Head Fractures(Right) - Jer Medrano MD Surgeon Jer Medrano MD Drapery Hand Alaina Alonzo MD Estimated Blood Loss 125 Findings Consistent with Post-Op Diagnosis Fluids 1600 cc Drains Stevens Catheter (stevens was in place upon arrival to surgical suite) and Other (o stomy intact upon arrival to surgical suite) Anesthesia Type Spinal MAC Complications none
--- NOTE | 2020-02-24 18:18 | Operative Report ---
Post Operative Report Pre & Post Diagnosis Operation Date: 02/24/20 07:30 Pre-Op Diagnosis: Right subtrochanteric and femoral neck fracture Post-Op Diagnosis: Right subtrochanteric and femoral neck fracture I identified the patient and participated in the time-out.: Yes Procedure Operation Date: 02/24/20 07:30 Actual Procedures p Open Reduction Internal Fixation Right Trochanteric and Femoral Head Fractures(Right) - Jer Medrano MD Surgeon Jer Medrano MD Cloth Bale Header Alaina Alonzo MD Estimated Blood Loss 125 Findings See Below Displaced subtroch fracture. Non-displaced femoral neck fracture. Fluids 1600cc Specimens n/a Anesthesia Type Spinal MAC Complications none Indications The patient is a 79 year old male inmate who sustained a right Subtrochanteric and femoral neck fractures from a ground level fall. The patients treatment options of conservative versus surgical intervention were discussed. I recommended surgery, once the patient was medically cleared, to allow for decreased morbidity and mortality. The patient is non-communicative and his son who is the power of compliance attorney was unable to be reached, due to the severity of the injury and the need for surgery to decrease blood loss and morbidity and mortality, it was decided to proceed with surgery with implied consent. Description of Procedure IMPLANTS: 1. Synthes 11 mm x 130 Deg x 380 mm Troch Nail. 2. 11 x 90 mm Helical blade. 3. 5 x 48 mm Distal Locking screw. 4. 7.3 x 85 mm cannulated screw. 5. FiberTape Cerclage were passed x 2 (Arthrex). PROCEDURE: The patient was taken to the Operating Room and placed in the lateral position on the radiolucent vascular table after spinal anesthesia was administered. A multidisciplinary time-out was performed identifying my initials on the right lower limb as the correct and operative limb. Prior to the incision being made, 1 gram of intravenous Ancef was given. The right lower extremity was prepped in the standard fashion. The trochanter and the planned incisions for the starting point of the trochanter, as well as laterally over the sub-troches fracture site, and for the distal locking screw were marked. The incisions were injected with a 50:50 mixture of 1% Lidocaine with epinephrine and 0.5% Bupivacaine plain for a total of 12cc. The lateral incision over the fracture site was carried down to the IT band. This was split in line with the fibers. Blunt dissection was carried through the vastus lateralis down to the femur and the fracture site was easily identified. 2 of the perforators were identified and ligated with silk ties. The fracture site was cleared of any soft tissue with the Grace and sharp dissection with a scalpel. Then a reduction maneuver was performed with traction and utilizing 2 lion-jaw's the fracture was made near anatomic. This was checked with fluoroscopy. Using FiberTape Cerclage were passed x 2 around the femur and tightened in the standard fashion. The clamps were able to be removed. The planned incision proximal to the greater trochanter was made and carried down through the Tensor Fascia Lupe to expose the tip of the greater trochanter and the starting position. A starting guide wire was placed and the starting reamer was used to create the entry hole. The long guide wire was then placed across the fracture into the distal fragment down to the distal femoral physeal scar centrally in both the AP and slightly anterior in the lateral projections. The femoral canal was then sequentially reamed from an 11 up to a 12.5 mm reamer. A size 11 mm implant was selected. The implant was then inserted without difficulty. The helical blade was able to be placed through the lateral incision. A derotation pin was placed as there was a femoral neck fracture as well. The Helical blade was placed through the aiming guide in the standard fashion. The Helical blade was locked in placed. A 7.3 mm cannulated screw was placed anterior and superior to the IM nail and remained short of the subchondral femoral head. The distal locking screw was placed with perfect clark's point technique in the dynamic slot. Final x-rays were obtained showing TAD of less than 25mm and a near anatomic alignment of the femoral shaft fracture. The wounds were copiously irrigated. The Tensor Fascia Lupe and IT band were closed with 0 Vicryl. The subcutaneous tissue was closed with 3-0 Vicryl. The skin was closed with Yessenia and Xeroform, covered by 4x4s, ABD, and Foam tape. The patient was transfer to her hospital bed and taken to the PACU in stable condition. The sponge and needle counts were correct. Post-op Instructions: The patient was re-admitted to the hospitalist service. The patient will be WBAT. The patient will be seen by PT/OT. DVT prophylaxis will be with TEDs, mechanical devices until 24hrs as the patient had a spinal and then ASA will be started. I attest to the content of the Intraoperative Record and any orders documented therein. Any exceptions are noted below.
--- NOTE | 2020-02-24 18:32 | Fluoroscopy Report ---
FL hip RT 2-3V HISTORY: 79 years-old Male RT TROCH NAIL acute proximal right femoral fracture COMPARISON: Radiograph the right femur 02/24/2020 TECHNIQUE: 6 spot fluoroscopic images of the right femur were obtained utilizing 114.3 seconds fluoro scopy time FINDINGS: Status post placement of a intratrochanteric nail and elongated intertrochanteric cannulated screw. E longated medullary thuy of the femur is noted with a distal cannulated screw. There is improved near a natomic alignment of the acute obliquely oriented subtrochanteric fracture. The hardware appears inta ct. Severe right hip osteoarthritis. IMPRESSION: Fluoroscopic assistance as above. Please see operative report for further details. ACT 112: Negative or not required by law. The above report was generated using voice recognition software. It may contain grammatical, syntax o r spelling errors. Electronically signed by: Kenny Mcfadden M.D. 02/24/2020 6:30 PM
--- NOTE | 2020-02-24 18:59 | Anesthesiology Progress Note ---
Date of Service February 24, 2020 Anesthesia Post Procedure Vital Signs Vital Signs: Temp Pulse Pulse Pulse Resp BP BP 02/24/20 18:50 65 26 H 02/24/20 18:40 65 24 02/24/20 18:33 36.0 C L 60 20 02/24/20 14:12 36.2 C L 68 16 02/24/20 11:57 35.5 C L 79 20 118/80 02/24/20 11:37 72 20 116/69 02/24/20 10:30 74 20 02/24/20 09:16 74 18 02/24/20 08:03 36.5 C 83 18 146/72 H BP Pulse Ox 02/24/20 18:50 112/70 100 02/24/20 18:40 114/69 100 02/24/20 18:33 118/65 100 02/24/20 14:12 120/74 97 02/24/20 11:57 99 02/24/20 11:37 98 02/24/20 10:30 116/71 98 02/24/20 09:16 123/67 97 02/24/20 08:03 99 Pain Intensity Right Leg: Pain Intensity: 0 Transfer of Care Handoff Completed per policy Notes Mental Status: alert / awake / arousable Patient Amnestic to Procedure: Yes Nausea / Vomiting: adequately controlled Pain: adequately controlled Airway Patency, RR, SpO2: stable & adequate BP & HR: stable & adequate Hydration State: stable & adequate Neuraxial Anesthesia: was administered and sensory block is resolving Anesthetic Complications: no major complications apparent and Pt Satisfied with anesthetic care Notes: The patient is nonverbal which is his baseline. He tracks with his eyes and his vitals are stable. The PACU nurse saw his leg twinge.
[2020-02-24] MEDS: DOCUSATE SODIUM/SENNA 50/8.6MG TAB PO SCH (21:02)
--- NOTE | 2020-02-24 21:06 | Operative Report ---
Post Operative Report Pre & Post Diagnosis Operation Date: 02/24/20 07:30 Pre-Op Diagnosis: Right subtrochanteric and femoral neck fracture Post-Op Diagnosis: Right subtrochanteric and femoral neck fracture I identified the patient and participated in the time-out.: Yes Procedure Operation Date: 02/24/20 07:30 Actual Procedures p Open Reduction Internal Fixation Right Trochanteric and Femoral Head Fractures(Right) - Jer Medrano MD Surgeon Jer Medrano MD Janitor Helper Alaina Alonzo MD Estimated Blood Loss 125 Findings Consistent with Post-Op Diagnosis Specimens None Complications none Disposition Accompanied Patient To Recovery: Yes Disposition: Recovery Room Description of Procedure Lateral decubitus position, standard prep and drape, Time out Open Reduction Internal Fixation Right Trochanteric and Femoral Head Fractures Please see Dr Medrano's procedure notes for specific details I was present throughout the case, assisted for wound closure and transferred the patient to PACU in stable condition I attest to the content of the Intraoperative Record and any orders documented therein. Any exceptions are noted below.
[2020-02-24 22:08] LABS: Magnesium 1.9 mg/dl (1.8-2.4); Thyroid Stimulating Hormone 0.597 uIu/ml (0.300-4.500)
[2020-02-24] MEDS: LACTATED RINGER'S 1,000 ML IV SCH (22:19)
[2020-02-25 00:03] LABS: Appearance Urine Turbid (Clear); Bacteria Urine Automated Negative (Negative); Bilirubin Urine Negative (Negative); Blood Urine 3+ (Negative); Color Urine Yellow; Glucose Urine UA 1+ (Negative); Ketones Urine Negative (Negative); Leukocyte Esterase Urine 3+ (Negative); Nitrite Urine Positive (Negative); Protein Urine 2+ (Negative); RBC Urine Automated >30 /hpf (0-4); Specific Gravity Urine 1.028 (1.000-1.030); Urobilinogen Urine Negative (Negative); WBC Urine Automated >30 /hpf (0-5)
[2020-02-25] MEDS: LACTATED RINGER'S 1,000 ML IV SCH ×3 (03:02→15:31)
[2020-02-25 03:05] LABS: Basophils # (auto) 0.01 K/uL (0-0.2); Basophils % (auto) 0.1 %; Eosinophils # (auto) 0.01 K/uL (0-0.5); Eosinophils % (auto) 0.1 %; Hematocrit (blood only) 35.9 % (42-52); Hemoglobin 12.2 g/dL (14.0-18.0); Immature Granulocytes # (auto) 0.04 K/uL (0.00-0.02); Immature Granulocytes % (auto) 0.3 %; Lymphocytes # (auto) 1.43 K/uL (1.2-3.4); Lymphocytes % (auto) 11.2 %; Mean Corpuscular Hemoglobin 30.2 pg (25-34); Mean Corpuscular Volume 88.9 fL (80-100); Mean Platelet Volume 9.5 fL (7.4-10.4); Monocytes % (auto) 4.7 %; Neutrophils # (auto) 10.64 K/uL (1.4-6.5); Neutrophils % (auto) 83.6 %; Platelet Count 193 K/uL (130-400); RDW Coefficient of Variation 14.1 % (11.5-14.5); RDW Standard Deviation 45.8 fL (36.4-46.3); Red Blood Count 4.04 M/uL (4.7-6.1); White Blood Count 12.73 K/uL (4.8-10.8)
[2020-02-25 03:22] LABS: Albumin Level 2.4 gm/dl (3.4-5.0); BUN Creatinine Ratio 16.1 (10-20); Calcium 7.9 mg/dl (8.5-10.1); Creatinine Clr Calc Pharmacy 42.1 ml/min; Est GFR (African American) 66.9; Est GFR (Non-African American) 57.8
[2020-02-25 03:26] LABS: Albumin Globulin Ratio 0.8 (0.9-2); Bilirubin,Total 0.8 mg/dl (0.2-1); Globulin 3.2 gm/dl (2.5-4.0); Total Protein 5.6 gm/dl (6.4-8.2)
--- NOTE | 2020-02-25 03:48 | Communication Note ---
Date of Service: February 25, 2020 Overnight developments : Made aware by RN of persistent hypothermia since 11 AM yesterday. Patient nonverbal and without complaints as per RN. lactic acid 2.2 UA WBC est nitrate pos AP Severe sepsis SIRS plus lactic acidosis ? Complicated UTI as source CS, Cefepime for now IVF, follow lactic acid Add Daptomycin if with persistent lactic acidosis Will relay to AM provider.
[2020-02-25] MEDS ORDERED: CEFEPIME 2,000 MG in SYRINGE 7.5 ML IV STA (04:07)
[2020-02-25] MEDS ORDERED: CEFEPIME CONSULT ACTIVE PRN (05:07)
[2020-02-25] MEDS ORDERED: LACTATED RINGER'S 1,000 ML IV ONE (05:42)
[2020-02-25] MEDS ORDERED: DAPTOMYCIN CONSULT ACTIVE PRN (05:52)
[2020-02-25] MEDS ORDERED: CEFAZOLIN 2000MG 2,000 MG/15 ML SYR IV SCH (06:00)
[2020-02-25] MEDS: DAPTOmycin 250 MG in SYRINGE 0 ML IV SCH (06:04)
--- NOTE | 2020-02-25 07:45 | Anesthesiology Progress Note ---
Date of Service February 25, 2020 Anesthesia Post Procedure Vital Signs Vital Signs: Temp Pulse Pulse Pulse Pulse Resp BP 02/25/20 07:43 36.7 C 74 16 02/25/20 03:07 36.3 C L 89 18 02/24/20 22:37 36.7 C 93 H 18 02/24/20 22:01 36.3 C L 02/24/20 21:33 35.8 C L 85 18 02/24/20 20:38 35.3 C L 78 18 02/24/20 19:56 36.1 C L 72 16 02/24/20 19:30 36.0 C L 75 18 02/24/20 19:15 36.4 C L 69 23 02/24/20 19:00 70 22 02/24/20 18:50 65 26 H 02/24/20 18:40 65 24 02/24/20 18:33 36.0 C L 60 20 02/24/20 14:12 36.2 C L 68 16 02/24/20 11:57 35.5 C L 79 20 02/24/20 11:37 72 20 116/69 02/24/20 10:30 74 20 02/24/20 09:16 74 18 02/24/20 08:03 36.5 C 83 18 146/72 H BP BP Pulse Ox 02/25/20 07:43 121/69 98 02/25/20 03:07 104/64 96 02/24/20 22:37 130/64 100 02/24/20 22:01 02/24/20 21:33 103/69 100 02/24/20 20:38 119/71 99 02/24/20 19:56 120/72 98 02/24/20 19:30 128/75 100 02/24/20 19:15 113/71 98 02/24/20 19:00 120/73 98 02/24/20 18:50 112/70 100 02/24/20 18:40 114/69 100 02/24/20 18:33 118/65 100 02/24/20 14:12 120/74 97 02/24/20 11:57 118/80 99 02/24/20 11:37 98 02/24/20 10:30 116/71 98 02/24/20 09:16 123/67 97 02/24/20 08:03 99 Pain Intensity Right Leg: Pain Intensity: 0 (pt is nonverbal; spoke with RN pt had one dose of Morphine over night; Pt was comfortably sleeping in his room;) Notes Mental Status: see notes below (pt nonverbal) Nausea / Vomiting: adequately controlled Pain: adequately controlled Airway Patency, RR, SpO2: stable & adequate BP & HR: stable & adequate Hydration State: stable & adequate Anesthetic Complications: no major complications apparent
[2020-02-25] MEDS ORDERED: ERGOCALCIFEROL 50,000 UNITS CAP PO SCH (09:00)
--- NOTE | 2020-02-25 09:31 | Orthopedic Progress Note ---
Date of Service February 25, 2020 Assessment & Plan (1) Femur fracture, right: POD #1, s/p ORIF Right subtrochanteric and femoral neck fractures. WBAT with walker and assistance. Resume diet. PT/OT continue pain control. Change dressing 02/26/2020 with Silverlon proximally and 4x4 and Tegaderm distally. DVT Prophylaxis: TEDs x 2 weeks, SCD's while in hospital. Start ASA 81 mg BID 02/25/2020 pm as had Spinal. Decubitus precautions. Continue care per primary service. D/C planning. The liliana may be removed by the [facility] 2 weeks after surgery and replaced with Steri-Strips. He will follow-up with x-rays [address] Torres will be covering. Present on Admission?: Yes Admission and Anticipated Discharge Date Admission Date: February 24, 2020 Subjective Patient remains non-communicative Review of Systems Review of Systems: Unable to obtain as patient is non-communictive. Physical Exam Physical Exam: RLE: Dressing clean, dry, intact. He does reflexively move his leg after touching his foot, unable to fully assess his neurovascular status as patient does not respond to commands. BCR < 2 sec. calf soft and non-tender. Results & Data ([facility]) Vital Signs (Past 12 Hours) Vital Signs Temp Pulse Resp BP Pulse Ox 02/25/20 07:43 36.7 C 74 16 121/69 98 02/25/20 03:07 36.3 C L 89 18 104/64 96 02/24/20 22:37 36.7 C 93 H 18 130/64 100 02/24/20 22:01 36.3 C L 02/24/20 21:33 35.8 C L 85 18 103/69 100 Laboratory Results 02/25/20 02/25/20 02/25/20 Range/Units 04:48 02:49 02:49 WBC (4.8-10.8) K/uL RBC (4.7-6.1) M/uL Hgb (14.0-18.0) g/dL Hct (42-52) % MCV (80-100) fL MCH (25-34) pg MCHC (32-36) g/dL RDW Std Deviation (36.4-46.3) fL RDW Coeff of Andrew (11.5-14.5) % Plt Count (130-400) K/uL MPV (7.4-10.4) fL Immature Gran % (Auto) % Neut % (Auto) % Lymph % (Auto) % [place] % (Auto) % Eos % (Auto) % Baso % (Auto) % Immature Gran # (Auto) (0.00-0.02) K/uL Neut # (Auto) (1.4-6.5) K/uL Lymph # (Auto) (1.2-3.4) K/uL [place] # (Auto) (0.11-0.59) K/uL Eos # (Auto) (0-0.5) K/uL Baso # (Auto) (0-0.2) K/uL Sodium 140 (136-145) mmol/L Potassium 4.0 (3.5-5.1) mmol/L Chloride 113 H (98-107) mmol/L Carbon Dioxide 24 (21-32) mmol/L Anion Gap 3.0 (3-11) BUN 19 H (7-18) mg/dl Creatinine 1.19 (0.6-1.4) mg/dl Est Cr Clr Drug Dosing 42.1 ml/min Est GFR ( Amer) 66.9 Est GFR (Non-Af Amer) 57.8 BUN/Creatinine Ratio 16.1 (10-20) Glucose 150 H (70-99) mg/dl POC Glucose (70-99) mg/dl Estimat Average Glucose mg/dl Hemoglobin A1c (4.5-5.6) % Lactate 3.1 H* (0.4-2.0) mmol/L Calcium 7.9 L (8.5-10.1) mg/dl Magnesium (1.8-2.4) mg/dl Total Bilirubin 0.8 (0.2-1) mg/dl AST 34 (15-37) U/L ALT 30 (12-78) U/L Alkaline Phosphatase 83 (45-117) U/L Total Protein 5.6 L D (6.4-8.2) gm/dl Albumin 2.4 L (3.4-5.0) gm/dl Globulin 3.2 (2.5-4.0) gm/dl Albumin/Globulin Ratio 0.8 L (0.9-2) 25-OH Vitamin D Total 11.6 L (30-100) ng/ml Procalcitonin (0-0.5) ng/ml TSH (0.300-4.500) uIu/ml Urine Color Urine Appearance (Clear) Urine pH (4.5-7.5) Ur Specific [place] (1.000-1.030) Urine Protein (Negative) Urine Glucose (UA) (Negative) Urine Ketones (Negative) Urine Blood (Negative) Urine Nitrite (Negative) Urine Bilirubin (Negative) Urine Urobilinogen (Negative) Ur Leukocyte Esterase (Negative) Urine WBC (Auto) (0-5) /hpf Urine RBC (Auto) (0-4) /hpf U Hyaline Cast (Auto) (0-5) /lpf U Epithel Cells (Auto) (0-5) /lpf Urine Bacteria (Auto) (Negative) Urine Yeast Nasal Screen MRSA (PCR) (Negative) Blood Type Antibody Screen 02/25/20 02/24/20 02/24/20 Range/Units 02:49 23:50 21:29 WBC 12.73 H (4.8-10.8) K/uL RBC 4.04 L (4.7-6.1) M/uL Hgb 12.2 L D (14.0-18.0) g/dL Hct 35.9 L (42-52) % MCV 88.9 (80-100) fL MCH 30.2 (25-34) pg MCHC 34.0 (32-36) g/dL RDW Std Deviation 45.8 (36.4-46.3) fL RDW Coeff of Andrew 14.1 (11.5-14.5) % Plt Count 193 (130-400) K/uL MPV 9.5 (7.4-10.4) fL Immature Gran % (Auto) 0.3 % Neut % (Auto) 83.6 % Lymph % (Auto) 11.2 % Swift % (Auto) 4.7 % Eos % (Auto) 0.1 % Baso % (Auto) 0.1 % Immature Gran # (Auto) 0.04 H (0.00-0.02) K/uL Neut # (Auto) 10.64 H (1.4-6.5) K/uL Lymph # (Auto) 1.43 (1.2-3.4) K/uL [place] # (Auto) 0.60 H (0.11-0.59) K/uL Eos # (Auto) 0.01 (0-0.5) K/uL Baso # (Auto) 0.01 (0-0.2) K/uL Sodium (136-145) mmol/L Potassium (3.5-5.1) mmol/L Chloride (98-107) mmol/L Carbon Dioxide (21-32) mmol/L Anion Gap (3-11) BUN (7-18) mg/dl Creatinine (0.6-1.4) mg/dl Est Cr Clr Drug Dosing ml/min Est GFR ( Amer) Est GFR (Non-Af Amer) BUN/Creatinine Ratio (10-20) Glucose (70-99) mg/dl POC Glucose (70-99) mg/dl Estimat Average Glucose mg/dl Hemoglobin A1c (4.5-5.6) % Lactate (0.4-2.0) mmol/L Calcium (8.5-10.1) mg/dl Magnesium (1.8-2.4) mg/dl Total Bilirubin (0.2-1) mg/dl AST (15-37) U/L ALT (12-78) U/L Alkaline Phosphatase (45-117) U/L Total Protein (6.4-8.2) gm/dl Albumin (3.4-5.0) gm/dl Globulin (2.5-4.0) gm/dl Albumin/Globulin Ratio (0.9-2) 25-OH Vitamin D Total (30-100) ng/ml Procalcitonin 0.15 (0-0.5) ng/ml TSH (0.300-4.500) uIu/ml Urine Color Yellow Urine Appearance Turbid A (Clear) Urine pH 5.0 (4.5-7.5) Ur Specific [place] 1.028 (1.000-1.030) Urine Protein 2+ H (Negative) Urine Glucose (UA) 1+ H (Negative) Urine Ketones Negative (Negative) Urine Blood 3+ H (Negative) Urine Nitrite Positive A (Negative) Urine Bilirubin Negative (Negative) Urine Urobilinogen Negative (Negative) Ur Leukocyte Esterase 3+ H (Negative) Urine WBC (Auto) >30 H (0-5) /hpf Urine RBC (Auto) >30 H (0-4) /hpf U Hyaline Cast (Auto) 1-5 (0-5) /lpf U Epithel Cells (Auto) 10-20 H (0-5) /lpf Urine Bacteria (Auto) Negative (Negative) Urine Yeast Not Reportable Nasal Screen MRSA (PCR) (Negative) Blood Type Antibody Screen 02/24/20 02/24/20 02/24/20 Range/Units 21:29 21:29 20:38 WBC (4.8-10.8) K/uL RBC (4.7-6.1) M/uL Hgb (14.0-18.0) g/dL Hct (42-52) % MCV (80-100) fL MCH (25-34) pg MCHC (32-36) g/dL RDW Std Deviation (36.4-46.3) fL RDW Coeff of Andrew (11.5-14.5) % Plt Count (130-400) K/uL MPV (7.4-10.4) fL Immature Gran % (Auto) % Neut % (Auto) % Lymph % (Auto) % [place] % (Auto) % Eos % (Auto) % Baso % (Auto) % Immature Gran # (Auto) (0.00-0.02) K/uL Neut # (Auto) (1.4-6.5) K/uL Lymph # (Auto) (1.2-3.4) K/uL [place] # (Auto) (0.11-0.59) K/uL Eos # (Auto) (0-0.5) K/uL Baso # (Auto) (0-0.2) K/uL Sodium (136-145) mmol/L Potassium (3.5-5.1) mmol/L Chloride (98-107) mmol/L Carbon Dioxide (21-32) mmol/L Anion Gap (3-11) BUN (7-18) mg/dl Creatinine (0.6-1.4) mg/dl Est Cr Clr Drug Dosing ml/min Est GFR ( Amer) Est GFR (Non-Af Amer) BUN/Creatinine Ratio (10-20) Glucose (70-99) mg/dl POC Glucose 140 H (70-99) mg/dl Estimat Average Glucose mg/dl Hemoglobin A1c (4.5-5.6) % Lactate 2.2 H* (0.4-2.0) mmol/L Calcium (8.5-10.1) mg/dl Magnesium 1.9 (1.8-2.4) mg/dl Total Bilirubin (0.2-1) mg/dl AST (15-37) U/L ALT (12-78) U/L Alkaline Phosphatase (45-117) U/L Total Protein (6.4-8.2) gm/dl Albumin (3.4-5.0) gm/dl Globulin (2.5-4.0) gm/dl Albumin/Globulin Ratio (0.9-2) 25-OH Vitamin D Total (30-100) ng/ml Procalcitonin (0-0.5) ng/ml TSH 0.597 (0.300-4.500) uIu/ml Urine Color Urine Appearance (Clear) Urine pH (4.5-7.5) Ur Specific [place] (1.000-1.030) Urine Protein (Negative) Urine Glucose (UA) (Negative) Urine Ketones (Negative) Urine Blood (Negative) Urine Nitrite (Negative) Urine Bilirubin (Negative) Urine Urobilinogen (Negative) Ur Leukocyte Esterase (Negative) Urine WBC (Auto) (0-5) /hpf Urine RBC (Auto) (0-4) /hpf U Hyaline Cast (Auto) (0-5) /lpf U Epithel Cells (Auto) (0-5) /lpf Urine Bacteria (Auto) (Negative) Urine Yeast Nasal Screen MRSA (PCR) (Negative) Blood Type Antibody Screen 02/24/20 02/24/20 02/24/20 Range/Units 12:58 12:56 12:22 WBC (4.8-10.8) K/uL RBC (4.7-6.1) M/uL Hgb (14.0-18.0) g/dL Hct (42-52) % MCV (80-100) fL MCH (25-34) pg MCHC (32-36) g/dL RDW Std Deviation (36.4-46.3) fL RDW Coeff of Andrew (11.5-14.5) % Plt Count (130-400) K/uL MPV (7.4-10.4) fL Immature Gran % (Auto) % Neut % (Auto) % Lymph % (Auto) % [place] % (Auto) % Eos % (Auto) % Baso % (Auto) % Immature Gran # (Auto) (0.00-0.02) K/uL Neut # (Auto) (1.4-6.5) K/uL Lymph # (Auto) (1.2-3.4) K/uL [place] # (Auto) (0.11-0.59) K/uL Eos # (Auto) (0-0.5) K/uL Baso # (Auto) (0-0.2) K/uL Sodium (136-145) mmol/L Potassium (3.5-5.1) mmol/L Chloride (98-107) mmol/L Carbon Dioxide (21-32) mmol/L Anion Gap (3-11) BUN (7-18) mg/dl Creatinine (0.6-1.4) mg/dl Est Cr Clr Drug Dosing ml/min Est GFR ( Amer) Est GFR (Non-Af Amer) BUN/Creatinine Ratio (10-20) Glucose (70-99) mg/dl POC Glucose 149 H (70-99) mg/dl Estimat Average Glucose mg/dl Hemoglobin A1c (4.5-5.6) % Lactate (0.4-2.0) mmol/L Calcium (8.5-10.1) mg/dl Magnesium (1.8-2.4) mg/dl Total Bilirubin (0.2-1) mg/dl AST (15-37) U/L ALT (12-78) U/L Alkaline Phosphatase (45-117) U/L Total Protein (6.4-8.2) gm/dl Albumin (3.4-5.0) gm/dl Globulin (2.5-4.0) gm/dl Albumin/Globulin Ratio (0.9-2) 25-OH Vitamin D Total (30-100) ng/ml Procalcitonin (0-0.5) ng/ml TSH (0.300-4.500) uIu/ml Urine Color Urine Appearance (Clear) Urine pH (4.5-7.5) Ur Specific [place] (1.000-1.030) Urine Protein (Negative) Urine Glucose (UA) (Negative) Urine Ketones (Negative) Urine Blood (Negative) Urine Nitrite (Negative) Urine Bilirubin (Negative) Urine Urobilinogen (Negative) Ur Leukocyte Esterase (Negative) Urine WBC (Auto) (0-5) /hpf Urine RBC (Auto) (0-4) /hpf U Hyaline Cast (Auto) (0-5) /lpf U Epithel Cells (Auto) (0-5) /lpf Urine Bacteria (Auto) (Negative) Urine Yeast Nasal Screen MRSA (PCR) Negative (Negative) Blood Type AB Positive Antibody Screen NEGATIVE 02/24/20 Range/Units 08:13 WBC (4.8-10.8) K/uL RBC (4.7-6.1) M/uL Hgb (14.0-18.0) g/dL Hct (42-52) % MCV (80-100) fL MCH (25-34) pg MCHC (32-36) g/dL RDW Std Deviation (36.4-46.3) fL RDW Coeff of Andrew (11.5-14.5) % Plt Count (130-400) K/uL MPV (7.4-10.4) fL Immature Gran % (Auto) % Neut % (Auto) % Lymph % (Auto) % [place] % (Auto) % Eos % (Auto) % Baso % (Auto) % Immature Gran # (Auto) (0.00-0.02) K/uL Neut # (Auto) (1.4-6.5) K/uL Lymph # (Auto) (1.2-3.4) K/uL [place] # (Auto) (0.11-0.59) K/uL Eos # (Auto) (0-0.5) K/uL Baso # (Auto) (0-0.2) K/uL Sodium (136-145) mmol/L Potassium (3.5-5.1) mmol/L Chloride (98-107) mmol/L Carbon Dioxide (21-32) mmol/L Anion Gap (3-11) BUN (7-18) mg/dl Creatinine (0.6-1.4) mg/dl Est Cr Clr Drug Dosing ml/min Est GFR ( Amer) Est GFR (Non-Af Amer) BUN/Creatinine Ratio (10-20) Glucose (70-99) mg/dl POC Glucose (70-99) mg/dl Estimat Average Glucose 111 mg/dl Hemoglobin A1c 5.5 (4.5-5.6) % Lactate (0.4-2.0) mmol/L Calcium (8.5-10.1) mg/dl Magnesium (1.8-2.4) mg/dl Total Bilirubin (0.2-1) mg/dl AST (15-37) U/L ALT (12-78) U/L Alkaline Phosphatase (45-117) U/L Total Protein (6.4-8.2) gm/dl Albumin (3.4-5.0) gm/dl Globulin (2.5-4.0) gm/dl Albumin/Globulin Ratio (0.9-2) 25-OH Vitamin D Total (30-100) ng/ml Procalcitonin (0-0.5) ng/ml TSH (0.300-4.500) uIu/ml Urine Color Urine Appearance (Clear) Urine pH (4.5-7.5) Ur Specific [place] (1.000-1.030) Urine Protein (Negative) Urine Glucose (UA) (Negative) Urine Ketones (Negative) Urine Blood (Negative) Urine Nitrite (Negative) Urine Bilirubin (Negative) Urine Urobilinogen (Negative) Ur Leukocyte Esterase (Negative) Urine WBC (Auto) (0-5) /hpf Urine RBC (Auto) (0-4) /hpf U Hyaline Cast (Auto) (0-5) /lpf U Epithel Cells (Auto) (0-5) /lpf Urine Bacteria (Auto) (Negative) Urine Yeast Nasal Screen MRSA (PCR) (Negative) Blood Type Antibody Screen (1) Femur fracture, right Encounter type: initial encounter Femur location: unspecified portion of femur Fracture morphology: unspecified fracture morphology Fracture type: closed Qualified Code(s): S72.91XA - Unspecified fracture of right femur, initial encounter for closed fracture
--- NOTE | 2020-02-25 10:05 | XRay Report ---
XR thoracic spine 3V routine CLINICAL HISTORY: 79 years-old Male presenting with compression fx. TECHNIQUE: 3 views of the thoracic spine were obtained. COMPARISON: None. FINDINGS: No significant scoliosis. Exaggerated kyphosis at the thoracolumbar junction. Minimal vertebral body height loss at several thoracic vertebral body levels. More focal moderate to severe vertebral body h eight loss in the lower thoracic spine. Vertebral body alignment grossly maintained. Intervertebral d isc height loss at the level below the compressed vertebra. Multilevel spondylosis. Osteopenia may be present. IMPRESSION: 1. Moderate to severe compression fracture in the lower thoracic spine. This was demonstrated to be T12 on chest CT from 02/24/2020. This is age indeterminate. 2. Extensive multilevel degenerative change. ACT 112: Negative or not required by law. Electronically signed by: Trung Garcia M.D. 02/25/2020 10:03 AM
--- NOTE | 2020-02-25 10:06 | XRay Report ---
XR lumbar spine 2-3V CLINICAL HISTORY: compression fx COMPARISON STUDY: CT of the abdomen and pelvis February 24, 2020. FINDINGS: Right femoral internal fixation is noted. Severe left hip osteoarthritis is noted. There ar e multiple large stones within the bladder. Calcified gallstones are also noted. The bowel gas patter n is normal. There is right lower quadrant ileostomy. Note is made of a severe T12 compression fractu re which is likely subacute to chronic. There is slight concavity of the superior endplate of L4. No acute fracture is identified by radiography. Moderate to severe multilevel degenerative changes are p resent. IMPRESSION: 1. Severe T12 compression fracture which is likely subacute to chronic. Mild L4 compression fracture which is likely chronic. 2. No acute lumbar spine fracture. 3. Moderate to severe multilevel degenerative changes within the lumbar spine. ACT 112: Negative or not required by law. Electronically signed by: Sharad Roger M.D. 02/25/2020 10:04 AM
--- NOTE | 2020-02-25 11:37 | Orthopedic Consultation ---
Date of Consultation February 25, 2020 Assessment & Plan (1) Compression fracture of thoracic vertebra: Patient's imaging demonstrates evidence of compression fracture T12 and L4. They appear to be old and certainly subacute in nature. I would not brace the brace that this time. He may undergo transfers and physical therapy as tolerated. Present on Admission?: Yes History of Present Illness Reason for Consultation: Old compression fractures Attending Physician: Domingo Mark MD History of Present Illness Patient is status post ORIF proximal femur fracture. He is noncommunicative at this time. There is some concern regarding compression fractures of the thoracolumbar spine. Allergies Allergy/AdvReac Type Severity Reaction Status Date / Time No Known Allergies Allergy Unverified 02/24/20 08:30 Home Medications Home Medications Medication Instructions Recorded Confirmed Type acetaminophen 650 mg PO QID PRN 02/24/20 02/24/20 History celecoxib 100 mg PO DAILY 02/24/20 02/24/20 History zinc oxide [Desitin] 1 applic TOPICAL BID 02/24/20 02/24/20 History Patient History Medical History Dermatomycosis Lumbar radiculopathy Major neurocognitive disorder Paroxysmal atrial fibrillation Presbycusis Thrombophlebitis Surgical History History of colostomy Family History Other Unknown family medical history Social History Preferred Language: [place] Communication Ability: nonverbal Entry Rep Required: No Beliefs That Will Affect Care: None Current Living Situation: Other Current Living Situation Comment: [facility] Other Information That Helps Us Care for You: No Feels Safe at Home: Yes Smoking Status: Smoker, status unknown Physical Exam Physical Exam: Patient is in the chair at the bedside. He appears comfortable. He is unable to communicate. Appears to be neurologically intact. Results & Data ([facility]) Vital Signs (Past 12 Hours) Vital Signs Temp Pulse Resp BP Pulse Ox 02/25/20 07:43 36.7 C 74 16 121/69 98 02/25/20 03:07 36.3 C L 89 18 104/64 96 (1) Compression fracture of thoracic vertebra Encounter type: initial encounter Thoracic vertebra fracture level: T12 Qualified Code(s): S22.080A - Wedge compression fracture of T11-T12 vertebra, initial encounter for closed fracture
[2020-02-25] MEDS ORDERED: SODIUM CHLORIDE 0.9% 1000ML 1,000 ML IV ONE (13:10)
--- NOTE | 2020-02-25 13:15 | Hospitalist Progress Note ---
Date of Service February 25, 2020 Assessment & Plan (1) Fall: (2) Femur fracture, right: Patient is a 79 yr inmate from [place] [place] with H/O PAF not on any anticoagulation, H/O thrombophlebitis, major neurocognitive disorder due to vascular disease, H/O colectomy with ileostomy who presents secondary to unwitnessed fall . Right Femur Fracture: Secondary to unwitnessed Fall R femur X ray:Oblique fracture proximal right femoral shaft. Mild fracture angulation. Severe degenerative change right hip. S/P ORIF POD #1 [facility] Input Activity: WBAT with walker and assistance Continue PT/OT,pain control Continue bowel regimen to prevent constipation Started on Aspirin 81 mg BID for anticoagulation Monitor for post op anemia Hypothermia Lactic acidosis No obvious source of infection Continue empiric antibiotics Cultures:pending (3) Compression fracture of thoracic vertebra: Compression fracture T12 and L4--likely subacute in nature as per ortho [facility] Input Physical activity as tolerated Vitamin D deficiency: Vitamin D levels:11.6 Started on Vit D supplements Will need repeat Vit D level checked as outpatient (4) Compression fracture of lumbar vertebra: Compression fracture T12 and L4--likely subacute in nature as per ortho [facility] Input Physical activity as tolerated (5) Paroxysmal atrial fibrillation: H/O PAF in 2015 as per records Not on any rate control meds or anticoagulation Currently in sinus Monitor (6) Major neurocognitive disorder: H/O 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 without behavioral disturbance As per [facility] Satff: Patient is alert and oriented to self at baseline Occasionally becomes nonverbal Monitor (7) Hyperglycemia: Hb A1C: 5.5 (8) DVT prophylaxis: SCD/TEDS for now Code [place] Full code Disposition: [facility] as able Admission and Anticipated Discharge Date Admission Date: February 24, 2020 Subjective Patient is seen and examined at bedside Sitting in chair comfortably this morning Non verbal, doesn't follow commands Empirically started on antibiotics overnight due to hypothermia, lactic acidosis No distress on exam Guards at bedside Persistent leukocytosis/lactic acidosis; No hypothermia this AM Blood/Urine Cx:pending Review of Systems Review of Systems: Other Non verbal Physical Exam Physical Exam: Physical Exam: Vitals signs as noted above General Appearance:Moderately built and nourished, no apparent distress, Non verbal, Doesn't follow commands Head: normocephalic, Atraumatic Eyes: normal inspection, EOMI Neck: supple, Trachea midline Respiratory/Chest: Normal breath sounds, CTA, No accessory muscle use Cardiovascular: S1, S2, No murmur Abdomen/GI:Soft, Non tender, Bowel sounds present, +Ileostomy Extremities/Musculoskelatal:normal inspection, no edema, R LE surgical site in dressing Neurologic/Psych:Alert, awake, Could not perform neuro exam as patient doesn't follow commands/Non verbal Skin: normal color, warm Results & Data Results & Data ([facility]) Vital Signs (Past 12 Hours) Vital Signs Temp Pulse Resp BP Pulse Ox 02/25/20 07:43 36.7 C 74 16 121/69 98 02/25/20 03:07 36.3 C L 89 18 104/64 96 Laboratory Results Short CBC 02/25/20 Range/Units 02:49 WBC 12.73 H (4.8-10.8) K/uL Hgb 12.2 L D (14.0-18.0) g/dL Hct 35.9 L (42-52) % Plt Count 193 (130-400) K/uL BMP 02/25/20 02:49 Sodium 140 Potassium 4.0 Chloride 113 H Carbon Dioxide 24 BUN 19 H Creatinine 1.19 Glucose 150 H Calcium 7.9 L Liver Function 02/25/20 Range/Units 02:49 Total Bilirubin 0.8 (0.2-1) mg/dl AST 34 (15-37) U/L ALT 30 (12-78) U/L Alkaline Phosphatase 83 (45-117) U/L Albumin 2.4 L (3.4-5.0) gm/dl Urine 02/24/20 Range/Units 23:50 Urine Color Yellow Urine Appearance Turbid A (Clear) Urine pH 5.0 (4.5-7.5) Ur Specific [place] 1.028 (1.000-1.030) Urine Protein 2+ H (Negative) Urine Glucose (UA) 1+ H (Negative) (1) Fall Encounter type: initial encounter Qualified Code(s): W19.XXXA - Unspecified fall, initial encounter (2) Femur fracture, right Encounter type: initial encounter Femur location: unspecified portion of femur Fracture morphology: unspecified fracture morphology Fracture type: closed Qualified Code(s): S72.91XA - Unspecified fracture of right femur, initial encounter for closed fracture (3) Compression fracture of thoracic vertebra Encounter type: initial encounter Thoracic vertebra fracture level: T12 Qualified Code(s): S22.080A - Wedge compression fracture of T11-T12 vertebra, initial encounter for closed fracture (4) Compression fracture of lumbar vertebra Encounter type: initial encounter Lumbar vertebra fracture level: unspecified lumbar vertebra Qualified Code(s): S32.000A - Wedge compression fracture of unspecified lumbar vertebra, initial encounter for closed fracture
[2020-02-25] MEDS: DOCUSATE SODIUM/SENNA 50/8.6MG TAB PO SCH (21:40)
[2020-02-25] MEDS: ASPIRIN 81 MG ECTAB PO SCH (21:51)
[2020-02-26] MEDS: DAPTOmycin 250 MG in SYRINGE 0 ML IV SCH (05:59)
[2020-02-26] MEDS: CEFEPIME 2,000 MG in SYRINGE 7.5 ML IV SCH (05:59)
[2020-02-26 06:01] LABS: Hematocrit (blood only) 29.7 % (42-52); Hemoglobin 10.1 g/dL (14.0-18.0); Mean Corpuscular Hemoglobin 30.2 pg (25-34); Mean Corpuscular Volume 88.9 fL (80-100); Mean Platelet Volume 9.7 fL (7.4-10.4); Platelet Count 151 K/uL (130-400); RDW Coefficient of Variation 14.2 % (11.5-14.5); RDW Standard Deviation 46.4 fL (36.4-46.3); Red Blood Count 3.34 M/uL (4.7-6.1); White Blood Count 7.46 K/uL (4.8-10.8)
[2020-02-26 06:48] LABS: BUN Creatinine Ratio 16.2 (10-20); Creatinine Clr Calc Pharmacy 58.3 ml/min; Est GFR (African American) 95.6; Est GFR (Non-African American) 82.5; Potassium 3.6 mmol/L (3.5-5.1)
--- NOTE | 2020-02-26 08:21 | Orthopedic Progress Note ---
Date of Service February 26, 2020 Assessment & Plan (1) Femur fracture, right: POD #2, s/p ORIF Right subtrochanteric and femoral neck fractures. WBAT with walker and assistance. Resume diet. PT/OT May be out of bed to chair. continue pain control. DVT Prophylaxis: TEDs x 2 weeks, SCD's while in hospital. Start ASA 81 mg BID 02/25/2020 pm as had Spinal. Decubitus precautions. Continue care per primary service. D/C planning. Okay from ortho standpoint for discharge once medically cleared. The liliana may be removed by the [facility] 2 weeks after surgery and replaced with Steri-Strips. He will follow-up with x-rays 8 weeks postop. Seen and evaluated by Dr. Torres today. Admission and Anticipated Discharge Date Admission Date: February 24, 2020 Subjective resting in bed, nursing at bedside. Doesn't follow commands, moans when rolled side to side to check hip and change bedding. Physical Exam Physical Exam: right hip incisions, clean, dry and intact. Middle incision with silverlon over, but proximal and distal incision open. Liliana intact. No active drainage, mild edema right thigh as expected. 1+ distal pulses. Silverlon placed over proximal incision and distal most incision covered with 4x4 and tegaderm. Results & Data ([facility]) Vital Signs (Past 12 Hours) Vital Signs Temp Pulse Resp BP Pulse Ox 02/25/20 22:56 36.6 C 73 18 136/75 96 (1) Femur fracture, right Encounter type: initial encounter Femur location: unspecified portion of femur Fracture morphology: unspecified fracture morphology Fracture type: c losed Qualified Code(s): S72.91XA - Unspecified fracture of right femur, initial encounter for closed fracture
[2020-02-26] MEDS: ASPIRIN 81 MG ECTAB PO SCH ×2 (08:34→20:16)
--- NOTE | 2020-02-26 13:34 | Hospitalist Progress Note ---
Date of Service February 26, 2020 Assessment & Plan (1) Fall: (2) Femur fracture, right: Patient is a 79 yr inmate from [facility] with H/O PAF not on any anticoagulation, H/O thrombophlebitis, major neurocognitive disorder due to vascular disease, H/O colectomy with ileostomy who presents secondary to unwitnessed fall . Right Femur Fracture: Secondary to unwitnessed Fall R femur X ray:Oblique fracture proximal right femoral shaft. Mild fracture angulation. Severe degenerative change right hip. S/P ORIF POD #2 App[facility]iate Orth[facility]ics Input Activity: WBAT with walker and assistance Continue PT/OT,pain control Continue bowel regimen to prevent constipation Continue Aspirin 81 mg BID for anticoagulation Monitor for post op anemia Plan to remove liliana at [facility] 2 weeks after surgery and replaced with Steri-Strips. Needs follow up with Orthopedics with X rays in 8 weeks Hypothermia: Resolved Leukocytosis: Resolved Lactic acidosis Possible UTI Urine Cx: Gram negative bacilli Blood Cx: No growth to date Nasal MRSA PCR: Negative Discontinue Daptomycin Continue Cefepime Day#2 (3) Compression fracture of thoracic vertebra: Compression fracture T12 and L4--likely subacute in nature as per ortho App[facility]iate [facility] Input Physical activity as tolerated Vitamin D deficiency: Vitamin D levels:11.6 Started on Vit D supplements Will need repeat Vit D level checked as outpatient (4) Compression fracture of lumbar vertebra: Compression fracture T12 and L4--likely subacute in nature as per ortho [facility] Input Physical activity as tolerated (5) Paroxysmal atrial fibrillation: H/O PAF in 2015 as per records Not on any rate control meds or anticoagulation Currently in sinus Monitor (6) Major neurocognitive disorder: H/O 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 without behavioral disturbance As per [facility] Satff: Patient is alert and oriented to self at baseline Occasionally becomes nonverbal Monitor (7) Hyperglycemia: Hb A1C: 5.5 (8) DVT prophylaxis: SCD/TEDS Aspirin 81 mg BID Code Sattus Full code Disposition: [facility] as able Admission and Anticipated Discharge Date Admission Date: February 24, 2020 Subjective Patient is seen and examined at bedside Non verbal, doesn't follow commands No distress on exam Afebrile Guards at bedside leukocytosis normalized Blood Cx: No growth to date Urine Cx:gram negative bacilli Review of Systems Review of Systems: Unobtainable due to mental health condition Physical Exam Physical Exam: Physical Exam: Vitals signs as noted above General Appearance:Moderately built and nourished, no apparent distress, Non verbal, Doesn't follow commands Head: normocephalic, Atraumatic Eyes: normal inspection, EOMI Neck: supple, Trachea midline Respiratory/Chest: Normal breath sounds, CTA, No accessory muscle use Cardiovascular: S1, S2, No murmur Abdomen/GI:Soft, Non tender, Bowel sounds present, +Ileostomy Extremities/Musculoskelatal:normal inspection, no edema, R LE surgical site in dressing Neurologic/Psych:Alert, awake, Could not perform neuro exam as patient doesn't follow commands/Non verbal Skin: normal color, warm Results & Data Results & Data ([facility]) Vital Signs (Past 12 Hours) Vital Signs Temp Pulse Resp BP Pulse Ox 02/26/20 08:56 81 16 95 02/26/20 08:23 36.5 C 66 16 124/70 96 Laboratory Results Short CBC 02/26/20 Range/Units 05:15 WBC 7.46 (4.8-10.8) K/uL Hgb 10.1 L (14.0-18.0) g/dL Hct 29.7 L (42-52) % Plt Count 151 (130-400) K/uL BMP 02/26/20 05:15 Sodium 140 Potassium 3.6 Chloride 110 H Carbon Dioxide 26 BUN 14 Creatinine 0.86 D Glucose 97 Calcium 8.0 L (1) Fall Encounter type: initial encounter Qualified Code(s): W19.XXXA - Unspecified fall, initial encounter (2) Femur fracture, right Encounter type: initial encounter Femur location: unspecified portion of femur Fracture morphology: unspecified fracture morphology Fracture type: closed Qualified Code(s): S72.91XA - Unspecified fracture of right femur, initial encounter for closed fracture (3) Compression fracture of thoracic vertebra Encounter type: initial encounter Thoracic vertebra fracture level: T12 Qualified Code(s): S22.080A - Wedge compression fracture of T11-T12 vertebra, initial encounter for closed fracture (4) Compression fracture of lumbar vertebra Encounter type: initial encounter Lumbar vertebra fracture level: unspecified lumbar vertebra Qualified Code(s): S32.000A - Wedge compression fracture of unspecified lumbar vertebra, initial encounter for closed fracture
[2020-02-26 14:06] LABS: Hematocrit (blood only) 31.8 % (42-52); Hemoglobin 10.8 g/dL (14.0-18.0)
[2020-02-26] MEDS: DOCUSATE SODIUM/SENNA 50/8.6MG TAB PO SCH (20:16)
[2020-02-27] MEDS: CEFEPIME 2,000 MG in SYRINGE 7.5 ML IV SCH (05:20)
[2020-02-27 05:46] LABS: Hematocrit (blood only) 28.7 % (42-52); Hemoglobin 9.8 g/dL (14.0-18.0); Mean Corpuscular Hemoglobin 29.9 pg (25-34); Mean Corpuscular Hgb Conc 34.1 g/dL (32-36); Mean Corpuscular Volume 87.5 fL (80-100); Mean Platelet Volume 9.5 fL (7.4-10.4); Platelet Count 166 K/uL (130-400); RDW Coefficient of Variation 14.2 % (11.5-14.5); RDW Standard Deviation 45.1 fL (36.4-46.3); Red Blood Count 3.28 M/uL (4.7-6.1); White Blood Count 9.15 K/uL (4.8-10.8)
[2020-02-27 06:13] LABS: BUN Creatinine Ratio 18.3 (10-20); Calcium 7.9 mg/dl (8.5-10.1); Creatinine Clr Calc Pharmacy 50.2 ml/min; Est GFR (African American) 82.6; Est GFR (Non-African American) 71.3; Potassium 3.4 mmol/L (3.5-5.1)
[2020-02-27] MEDS ORDERED: POTASSIUM CHLORIDE 20 MEQ TABCR PO STA (08:20)
--- NOTE | 2020-02-27 08:29 | Orthopedic Progress Note ---
Date of Service February 27, 2020 Assessment & Plan (1) Femur fracture, right: POD #3, s/p ORIF Right subtrochanteric and femoral neck fractures. WBAT with walker and assistance. Resume diet. PT/OT May be out of bed to chair. continue pain control. DVT Prophylaxis: TEDs x 2 weeks, SCD's while in hospital. Start ASA 81 mg BID 02/25/2020. Decubitus precautions. Continue care per primary service. D/C planning. Okay from ortho standpoint for discharge once medically cleared. The liliana may be removed by the [facility] 2 weeks after surgery and replaced with Steri-Strips. He will follow-up with x-rays 8 weeks postop. Seen and evaluated by Dr. Torres today. Admission and Anticipated Discharge Date Admission Date: February 24, 2020 Subjective Patient sleeping, but woke when we were in room Guards at bedside Patient nonverbal when asked questions. Guards and nurses state he was out of bed yesterday. Physical Exam Physical Exam: Right leg hip dressings intact. Doesn't follow commands. Results & Data ([facility]) Vital Signs (Past 12 Hours) Vital Signs Temp Pulse Resp BP Pulse Ox Pulse Ox 02/27/20 07:16 37 C 66 16 125/52 L 95 02/27/20 04:04 96 02/27/20 00:27 36.6 C 72 18 112/66 96 02/27/20 00:20 96 Laboratory Results 02/27/20 02/27/20 02/26/20 Range/Units 05:32 05:32 13:44 WBC 9.15 (4.8-10.8) K/uL RBC 3.28 L (4.7-6.1) M/uL Hgb 9.8 L 10.8 L (14.0-18.0) g/dL Hct 28.7 L 31.8 L (42-52) % MCV 87.5 (80-100) fL MCH 29.9 (25-34) pg MCHC 34.1 (32-36) g/dL RDW Std Deviation 45.1 (36.4-46.3) fL RDW Coeff of Andrew 14.2 (11.5-14.5) % Plt Count 166 (130-400) K/uL MPV 9.5 (7.4-10.4) fL Sodium 138 (136-145) mmol/L Potassium 3.4 L (3.5-5.1) mmol/L Chloride 107 (98-107) mmol/L Carbon Dioxide 29 (21-32) mmol/L Anion Gap 3.0 (3-11) BUN 18 (7-18) mg/dl Creatinine 1.00 (0.6-1.4) mg/dl Est Cr Clr Drug Dosing 50.2 ml/min Est GFR ( Amer) 82.6 Est GFR (Non-Af Amer) 71.3 BUN/Creatinine Ratio 18.3 (10-20) Glucose 99 (70-99) mg/dl Calcium 7.9 L (8.5-10.1) mg/dl (1) Femur fracture, right Encounter type: initial encounter Femur location: unspecified portion of femur Fracture morphology: unspecified fracture morphology Fracture type: closed Qualified Code(s): S72.91XA - Unspecified fracture of right femur, initial encounter for closed fracture
[2020-02-27] MEDS: ASPIRIN 81 MG ECTAB PO SCH (10:05)
--- NOTE | 2020-02-27 11:18 | Hospitalist Progress Note ---
Date of Service February 27, 2020 Assessment & Plan (1) Fall: (2) Femur fracture, right: Patient is a 79 yr inmate from [facility] with H/O PAF not on any anticoagulation, H/O thrombophlebitis, major neurocognitive disorder due to vascular disease, H/O colectomy with ileostomy who presents secondary to unwitnessed fall . Right Femur Fracture: Secondary to unwitnessed Fall R femur X ray:Oblique fracture proximal right femoral shaft. Mild fracture angulation. Severe degenerative change right hip. S/P ORIF POD #3 App[facility] Input Activity: WBAT with walker and assistance Continue PT/OT,pain control Continue bowel regimen to prevent constipation Continue Aspirin 81 mg BID for anticoagulation Monitor for post op anemia Plan to remove liliana at [facility] 2 weeks after surgery and replaced with Steri-Strips. Needs follow up with Orthopedics with X rays in 8 weeks Plan [facility] Hypothermia: Resolved Leukocytosis: Resolved Lactic acidosis Possible UTI--Less likely as colony count only 5000 Urine Cx: Gram negative bacilli Blood Cx: No growth to date Nasal MRSA PCR: Negative Discontinue Daptomycin Continue Cefepime Day#3 No plan to continue antibiotics upon discharge (3) Compression fracture of thoracic vertebra: Compression fracture T12 and L4--likely subacute in nature as per ortho App[facility] Input Physical activity as tolerated Vitamin D deficiency: Vitamin D levels:11.6 Started on Vit D supplements Will need repeat Vit D level checked as outpatient (4) Compression fracture of lumbar vertebra: Compression fracture T12 and L4--likely subacute in nature as per ortho App[facility] Input Physical activity as tolerated (5) Paroxysmal atrial fibrillation: H/O PAF in 2014 as per records Not on any rate control meds or anticoagulation Currently in sinus Monitor (6) Major neurocognitive disorder: H/O 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 without behavioral disturbance As per [facility] Satff: Patient is alert and oriented to self at baseline Occasionally becomes nonverbal Monitor (7) Hyperglycemia: Hb A1C: 5.5 (8) DVT prophylaxis: SCD/TEDS Aspirin 81 mg BID Code Sattus Full code Disposition: [facility] Admission and Anticipated Discharge Date Admission Date: February 24, 2020 Subjective Patient is seen and examined at bedside Non verbal, doesn't follow commands No distress on exam Guards at bedside Tolerated PT well yesterday Cleared by Ortho for discharge Not requiring any pain meds--pain seemed to be well controlled Blood Cx: No growth to date Urine Cx:gram negative bacilli <5000. Review of Systems Review of Systems: Unobtainable due to mental health condition Physical Exam Physical Exam: Physical Exam: Vitals signs as noted above General Appearance:Moderately built and nourished, no apparent distress, Non verbal, Doesn't follow commands Head: normocephalic, Atraumatic Eyes: normal inspection, EOMI Neck: supple, Trachea midline Respiratory/Chest: Normal breath sounds, CTA, No accessory muscle use Cardiovascular: S1, S2, No murmur Abdomen/GI:Soft, Non tender, Bowel sounds present, +Ileostomy Extremities/Musculoskelatal:normal inspection, no edema, R LE surgical site in dressing Neurologic/Psych:Alert, awake, Could not perform neuro exam as patient doesn't follow commands/Non verbal Skin: normal color, warm Results & Data Results & Data ([facility]) Vital Signs (Past 12 Hours) Vital Signs Temp Pulse Resp BP Pulse Ox Pulse Ox 02/27/20 07:16 37 C 66 16 125/52 L 95 02/27/20 04:04 96 02/27/20 00:27 36.6 C 72 18 112/66 96 02/27/20 00:20 96 Laboratory Results Short CBC 02/26/20 02/27/20 Range/Units 13:44 05:32 WBC 9.15 (4.8-10.8) K/uL Hgb 10.8 L 9.8 L (14.0-18.0) g/dL Hct 31.8 L 28.7 L (42-52) % Plt Count 166 (130-400) K/uL BMP 02/27/20 05:32 Sodium 138 Potassium 3.4 L Chloride 107 Carbon Dioxide 29 BUN 18 Creatinine 1.00 Glucose 99 Calcium 7.9 L (1) Fall Encounter type: initial encounter Qualified Code(s): W19.XXXA - Unspecified fall, initial encounter (2) Femur fracture, right Encounter type: initial encounter Femur location: unspecified portion of femur Fracture morphology: unspecified fracture morphology Fracture type: closed Qualified Code(s): S72.91XA - Unspecified fracture of right femur, initial encounter for closed fracture (3) Compression fracture of thoracic vertebra Encounter type: initial encounter Thoracic vertebra fracture level: T12 Qualified Code(s): S22.080A - Wedge compression fracture of T11-T12 vertebra, initial encounter for closed fracture (4) Compression fracture of lumbar vertebra Encounter type: initial encounter Lumbar vertebra fracture level: unspecified lumbar vertebra Qualified Code(s): S32.000A - Wedge compression fracture of unspecified lumbar vertebra, initial encounter for closed fracture
--- NOTE | 2020-02-27 11:28 | Discharge Summary ---
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 Fall was unwitnessed. It was felt he was not down long. Unable to obtain hx or ROS from pt given underlying cognitive disease. Per staff at [facility] at baseline he is mostly wheelchair bound but he is able to get up and ambulate a few steps for transfer. His mental status baseline is alert and orientation to self only. According to staff he does occasionally get nonverbal secondary to impacted cerumen and difficulty hearing as well as pain. When pain is improved he then becomes verbal again. According to staff he also frequently pulls off his ileostomy bag. Per staff he has not had anything to eat or drink yet this morning. In ED he remained hemodynamically stable. Lab work notable for WBC 12.35, H&H 17.4 and 49.5, platelet 249, sodium 140, K3.9, chloride 108, CO2 25, BUN 27, creatinine 1.35, glucose 179. Multiple imaging studies were performed which revealed acute proximal right femur fracture, mild displacement and angulation, several lower thoracic and lumbar spine compression fractures including a severe T12 compression fracture likely subacute. Cervical spine and chest CT was negative for acute abnormality. CT of head was negative for acute abnormality but did reveal severe cerebral calcifications unchanged from prior CT in 2018. In ED he did receive IV fentanyl for pain control and IVF. Admission Exam Per Admitting Provider Physical Exam Physical Exam: Constitutional: Elderly, male, lying in bed, awake and alert but not verbally responsive,vitals as above, NAD Head: Normocephalic, Atraumatic Eyes: Pupils equal and reactive to light, does not follow command, conjunctivae normal, anicteric sclerae ENMT: external ear and nose normal, oropharynx with dry mucous membranes Neck: trachea midline, no thyromegaly normal visual inspection Respiratory: normal respiratory effort, lungs clear to auscultation, no wheeze, rales, rhonchi. Normal insp/exp effort, no accessory muscle use Cardiovascular: RRR, no murmur, no edema Vessels: no JVD or carotid bruit Chest: normal inspection of chest Abdomen: Positive ventral scar noted, positive ileostomy right lower quadrant with no stool output, abdomen flat, nontender to palpation, normal active bowel sounds, no hepatosplenomegaly Musculoskeletal: no cyanosis or clubbing, shortened right lower extremity with foot inversion, ecchymosis and edema to right lateral thigh with deformity, patient does not follow commands to assess strength of other extremities Skin: no rashes, warm and dry moderate turgor Neurologic: PERRL, no face palsy, CN's II-XI intact grossly bilaterally Psychiatric: Alert and arousable, but does not follow commands or answer questions, nonverbal, flat affect Lymphatic: no cervical or axillary lymphadenopathy : deferred Principal Diagnosis Right Femur Fracture Unwitnessed Fall Vitamin D deficiency Compression fracture of vertebrae Discharge Data Allergies Allergy/AdvReac Type Severity Reaction Status Date / Time No Known Allergies Allergy Unverified 02/24/20 08:30 Consultations 02/24/20 09:49 ED Decision to Admit Stat 02/24/20 10:02 Consult Orthopedic Surgery Stat 02/24/20 10:02 Consult Orthopedic Surgery Routine 02/24/20 11:33 Consult Anesthesiology Routine 02/24/20 11:56 Consult Case Management - Discharge Planning Routine 02/24/20 14:05 Consult Orthopedic Surgery Routine 02/24/20 18:26 Consult Case Management - Discharge Planning Routine Procedures Performed Operation Date: 02/24/20 07:30 Actual Procedures p Open Reduction Internal Fixation Right Trochanteric and Femoral Head Fractures(Right) - Jer Elizabeth Medrano MD Right femur X ray: Oblique fracture proximal right femoral shaft. Mild fracture angulation. Severe degenerative change right hip. Lumbar X ray: 1. Severe T12 compression fracture which is likely subacute to chronic. Mild L4 compression fracture which is likely chronic. 2. No acute lumbar spine fracture. 3. Moderate to severe multilevel degenerative changes within the lumbar spine. Thoracic Spine X ray: 1. Moderate to severe compression fracture in the lower thoracic spine. This was demonstrated to be T12 on chest CT from 02/24/2020. This is age indeterminate. 2. Extensive multilevel degenerative change. Chest CT: No significant abnormality identified within the chest. Gallstones. 50% compression deformity of T12 of uncertain age. Cervical CT: No fractures within the cervical spine. Moderate generalized degenerative change. ABD CT: 1. Acute proximal right femoral fracture. Fracture mildly displaced within the subtrochanteric and intertrochanteric portions and nondisplaced at the level of the femoral neck. 2. No evidence of traumatic injury to the solid abdominal viscera. 3. Several lower thoracic and lumbar spine compression fractures, including a severe T12 compression fracture which is probably subacute. 4. Multiple large bladder calculi. Bladder wall thickening. 5. Cholelithiasis. Ordered Studies 02/24/20 FL fluoroscopy <1hr Routine FL hip RT 2-3V Routine 02/24/20 08:17 CT abd pelvis IV con only Stat CT cervical spine wo con Stat CT chest w con Stat CT head/brain wo con Stat Hospital Course (1) Fall: (2) Femur fracture, right: Patient is a 79 yr inmate from [facility] with H/O PAF not on any anticoagulation, H/O thrombophlebitis, major neurocognitive disorder due to vascular disease, H/O colectomy with ileostomy who presents secondary to unwitnessed fall . Right Femur Fracture: Secondary to unwitnessed Fall R femur X ray:Oblique fracture proximal right femoral shaft. Mild fracture angulation. Severe degenerative change right hip. S/P ORIF POD #3 Appreciate [facility] Input Activity: WBAT with walker and assistance Continue PT/OT,pain control Continue bowel regimen to prevent constipation Continue Aspirin 81 mg BID for anticoagulation Monitor for post op anemia Plan to remove liliana at [facility] 2 weeks after surgery and replaced with Steri-Strips. Needs follow up with Orthopedics with X rays in 8 weeks Plan to discharge him back to [facility] Hypothermia: Resolved Leukocytosis: Resolved Lactic acidosis Possible UTI--Less likely as colony count only 5000 Urine Cx: Gram negative bacilli Blood Cx: No growth to date Nasal MRSA PCR: Negative Discontinue Daptomycin Continue Cefepime Day#3 No plan to continue antibiotics upon discharge (3) Compression fracture of thoracic vertebra: Compression fracture T12 and L4--likely subacute in nature as per ortho Appreciate Orthopedics Input Physical activity as tolerated Vitamin D deficiency: Vitamin D levels:11.6 Started on Vit D supplements Will need repeat Vit D level checked as outpatient (4) Compression fracture of lumbar vertebra: Compression fracture T12 and L4--likely subacute in nature as per ortho Appreciate Orthopedics Input Physical activity as tolerated (5) Paroxysmal atrial fibrillation: H/O PAF in 2014 as per records Not on any rate control meds or anticoagulation Currently in sinus Monitor (6) Major neurocognitive disorder: H/O 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 without behavioral disturbance As per [facility] Satff: Patient is alert and oriented to self at baseline Occasionally becomes nonverbal Monitor (7) Hyperglycemia: Hb A1C: 5.5 (8) DVT prophylaxis: SCD/TEDS Aspirin 81 mg BID Code Sattus Full code Disposition: [facility] Total Time Total Time Spent Total Time Spent (In Minutes): 40 minutes Total Time Includes: Examination of the Patient, Discharge Planning, Medication Reconciliation, Communication With Other Providers and Other Discharge Plan Discharge Items [facility] Reason For Visit: FALL Discharge Diagnosis: Right Femur Fracture Compression fracture T12 and L4 Activity: Per Instructions section Exercise/Sports: As tolerated Non-emergency contact: Primary Care Provider and Surgeon Call non-emergency contact if: you have any medication questions, your symptoms worsen, your pain is not controlled, your pain is worsening, your pain is unusual for you, your pain is concerning for you, you have a fever, your wound has increased redness, your wound has increased drainage and your wound pain has increased Follow-up/Referrals: Braden SEXTON [Primary Care Provider] - Diet: Heart Healthy Tsering Attending Provider Instructions: Follow-up with your physician at [facility] facility in 1 week Follow-up with your orthopedic surgeon in 8 weeks with x rays as recommended by your surgeon Final blood cultures are pending at the time of discharge. Follow-up with your physician for results. 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 Ice to right thigh/hip as needed for pain/swelling. 2. Allowed for full range of motion right hip and knee as tolerated. 3. Weight bear as tolerated right lower extremity 4. Use walker to assist with ambulation or for transfers from bed to chair if able. 5. Keep incisions covered at all times. 6. Keep incisions clean and dry. 7. On 03/04/20 please remove Silverlon dressing for right hip and redress with light dressing. 8. Remove liliana 2 weeks after surgery. 9. Once incisions healed, may shower and get wet. 10. Notify Dr. Medrano at [facility] with any drainage from incisions, redness, warmth or concerns of infection. 11. Follow up with Dr. Medrano 8 weeks after surgery. Please call [phone] to schedule appointment. Pending Studies at Discharge: Yes Studies:: Blood Cultures Stand-Alone Forms: [facility] Skilled Items Patient informed of condition?: Yes Discharge Level of Care: Other Communicable Disease: No Discharge Prognosis: Stable Lines: None Urinary Catheter: No Medications and DC Order Prescriptions: New aspirin 81 mg Tablet,Delayed Release (Dr/Ec) 81 mg PO BID 45 Days Qty: 90 RF: 0 ergocalciferol (vitamin D2) 1,250 mcg (50,000 unit) Capsule 50,000 unit PO Q7D Qty: 5 RF: 0 Continued acetaminophen 325 mg Tablet 650 mg PO QID PRN (Reason: Pain) RF: 0 celecoxib 100 mg Capsule 100 mg PO DAILY RF: 0 Desitin 13 % Cream 1 applic TOPICAL BID RF: 0 Discharge Orders: Discharge Order (Routine); Ordered 02/27/20 Ordered By: Domingo Mark Admission Data Admit Date/Time: 02/24/20 10:02 Attending Provider: Domingo Mark Admit Provider: Domingo Mark Primary Care Provider: Braden SEXTON Other Providers: Jer Medrano ; Domingo Mark ; Berry Berger Gregory M Other Interventions: Discharge Summary Assessment (RN) Last Done: 02/27/20 12:18
== END 2020-02-27 15:22 | DRG 481 ==
LOC: ED 07:57 → 3E 10:02